=== PATIENT | male | born 1965 | race Caucasian/White ===

== ENCOUNTER 2017-04-15 23:26 | Emergency (ER) | payer BC, OTHER ==
[2017-04-16 00:08] VITALS: BP 151/89; PULSE 74; TEMP 98.6; BMI 26.9
--- NOTE | 2017-04-16 00:20 | PDOC ---
History of Present Illness - General History Source: Patient Exam Limitations: No Limitations - History of Present Illness Initial Comments: 04/16/17 00:39 The patient is a 52 year old male, with a significant past medical history of anxiety and multiple MIs, who presents to the emergency department with a toothache that began yesterday evening. The patient reports he was at work when he developed a sharp pain in his right lower teeth. Patient reports associated diaphoresis, denies any associated chest pain or palpitations. Patient also reports fast, shallow breaths at the time of the pain. He reports applying ice, Orajel, drinking cold water, and taking ibuprofen with relief of the pain. He denies any fever, chills, sore throat, ear pain, headache, or dizziness. Patient denies any recent trauma to the tooth. Patient reports he is on Plavix. Allergies: NKDA Past Surgical History: CABG, multiples stents, Pacemaker Social History: Vaping. No ETOH or recreational drug use. <Tony Davila - Last Filed: 04/16/17 00:50> <Raza Grover - Last Filed: 04/16/17 01:00> - General Chief Complaint: Toothache Stated Complaint: PAIN, ACUTE Time Seen by Provider: 04/15/17 23:55 Past History <Tnoy Davila - Last Filed: 04/16/17 00:50> - Suicide/Smoking/Psychosocial Hx Smoking History: Never smoked Have you smoked in the past 12 months: No Information on smoking cessation initiated: No Hx Alcohol Use: No Drug/Substance Use Hx: No <Raza Grover - Last Filed: 04/16/17 01:00> - Past Medical History Allergies/Adverse Reactions: Allergies Allergy/AdvReac Type Severity Reaction Status Date / Time No Known Allergies Allergy Verified 04/16/17 00:32 Home Medications: Ambulatory Orders Amoxicillin - [Amoxicillin 500mg Capsule -] 500 mg PO TID #21 capsule 04/16/17 Review of Systems - Review of Systems Able to Perform ROS?: Yes Comments:: 04/16/17 00:39 CONSTITUTIONAL: Yes: diaphoresis. No fever, no chills, no fatigue EYES: No visual changes ENT: Yes right lower tooth ache. No ear pain, no sore throat CARDIOVASCULAR: No chest pain, no palpitations RESPIRATORY: Yes: shortness of breath, rapid/shallow breathing. No cough GI: No abdominal pain, no nausea, no vomiting, no constipation, no diarrhea GENITOURINARY: No dysuria, no frequency, no hematuria MUSCULOSKELETAL: No back pain, no joint pain, no myalgias SKIN: No rash NEURO: No headache <Tony Davila - Last Filed: 04/16/17 00:50> *Physical Exam - Vital Signs Last Vital Signs Temp Pulse Resp BP Pulse Ox 98.6 F 74 14 151/89 97 04/16/17 00:07 04/16/17 00:07 04/16/17 00:07 04/16/17 00:07 04/16/17 00:07 - Physical Exam Comments: 04/16/17 00:39 CONSTITUTIONAL: Well-appearing; well-nourished; in no apparent distress HEAD: Normocephalic; atraumatic EYES: PERRL; EOM intact ENMT: External appears normal; normal oropharynx TEETH: Fracture to tooth #30, with exposed pulp. No gingival induration or flatulence NECK: Supple; non-tender; no cervical lymphadenopathy; no regional lymphadenopathy CARD: Normal S1, S2; no murmurs, rubs, or gallops RESP: Normal chest excursion with respiration; breath sounds clear and equal bilaterally; no wheezes, rhonchi, or rales ABD: Soft, non-distended; non-tender; no palpable organomegaly, no palpable hernias EXT: Normal ROM in all four extremities; non-tender to palpation; distal pulses intact SKIN: Warm, dry, no rash NEURO: No focal neurological deficiencies. <Tony Davila - Last Filed: 04/16/17 00:50> - Vital Signs Last Vital Signs Temp Pulse Resp BP Pulse Ox 98.6 F 74 14 151/89 97 04/16/17 00:07 04/16/17 00:07 04/16/17 00:07 04/16/17 00:07 04/16/17 00:07 <Raza Grover - Last Filed: 04/16/17 01:00> Heart Score/ECG Review - ECG Intrepretation Comment:: 04/16/17 00:44 Vent Rate: 72 bpm IMPRESSION: Normal sinus rhythm. Left anterior fasicular block. Septal infarct. Unchanged from ECG on 05/10/2011. <Tony Davila - Last Filed: 04/16/17 00:50> Medical Decision Making - Medical Decision Making 04/16/17 00:56 Patient was toothache likely caused by fractured tooth without evidence of underlying gingival abscess. EKG is unchanged and I do not suspect ACS at this time. Will discharge with clindamycin, NSAIDs for pain and outpatient dental follow-up promptly. <Raza Grover - Last Filed: 04/16/17 01:00> *DC/Admit/Observation/Transfer - Attestations Scribe Attestion: 04/16/17 00:39 Documentation prepared by Tony Davila, acting as medical assistant prn for Raza Grover MD. <Tony Davila - Last Filed: 04/16/17 00:50> - Attestations Physician Attestion: 04/16/17 00:55 The documentation was prepared by the scribe under my direct supervision. I have reviewed the documentation which correctly represents the findings, medical decision-making and critical action taken by me. <Raza Grover - Last Filed: 04/16/17 01:00> Diagnosis at time of Disposition: Toothache - Discharge Dispostion Disposition: HOME Condition at time of disposition: Stable - Referrals Referrals: dentist, two days [Other] - Patient Instructions Printed Discharge Instructions: DI for Dental Pain
[2017-04-16] MEDS ORDERED: CLINDAMYCIN HCL 300 MG CAPSULE PO ONE (00:30)
[2017-04-16] MEDS ORDERED: CLINDAMYCIN HCL 150 MG CAPSULE (FP) ONE (00:33)
--- NOTE | 2017-04-16 15:55 | EKG ---
Test Reason : Blood Pressure : / mmHG Vent. Rate : 072 BPM Atrial Rate : 072 BPM P-R Int : 194 ms QRS Dur : 110 ms QT Int : 424 ms P-R-T Axes : 042 -68 267 degrees QTc Int : 464 ms NORMAL SINUS RHYTHM LEFT ANTERIOR FASCICULAR BLOCK BORDERLINE CRITERIA FOR FOR IVCD SEPTAL INFARCT (CITED ON OR BEFORE 11-MAR-2007) ABNORMAL ECG WHEN COMPARED WITH ECG OF 10-MAY-2011 22:41, T WAVES ARE UPRIGHT IN V4-V5 REPEAT INDICATED Confirmed by MIKEY BARON MD ([id number]) on 04/16/2017 3:55:28 PM Referred By: Confirmed By:MIKEY BARON MD
== END 2017-04-16 01:09 | disposition home or self-care (01) ==
LOC: JER 23:26
DX: K08.89 Other specified disorders of teeth and supporting structures (principal); Z95.5 Presence of coronary angioplasty implant and graft; I25.2 Old myocardial infarction; F41.9 Anxiety disorder, unspecified
CPT/HCPCS: 93005; 93010; 99281-25

== ENCOUNTER 2017-11-16 15:55 | Inpatient (IN) | payer BC, OTHER ==
--- NOTE | 2017-11-16 16:50 | PDOC ---
History of Present Illness - General Chief Complaint: Edema Stated Complaint: COLD Time Seen by Provider: 11/16/17 16:22 History Source: Patient Exam Limitations: No Limitations - History of Present Illness Initial Comments: 11/16/17 16:42 The patient is a 52M with a PMH of CHF, multiple NM's, and anxiety, who presents to the ER with complaints of worsening cough and leg swelling. The patient states that he has had a cough x 1-2 months with increased leg swelling x 2 weeks. The patient states that his cough has worsened to the point where it was not bearable. He denies any fever, chills, nausea, vomiting, CP but admits to orthopnea and mild SOB. He denies numbness, tingling, weakness, and dysuria. Past History - Past Medical History Allergies/Adverse Reactions: Allergies Allergy/AdvReac Type Severity Reaction Status Date / Time No Known Allergies Allergy Verified 11/16/17 16:37 Home Medications: Ambulatory Orders Clopidogrel Bisulfate [Plavix -] 75 mg PO DAILY 05/17/17 Aspirin [Ecotrin] 162 mg PO DAILY 11/16/17 Carvedilol [Coreg -] 12.5 mg PO BID 11/16/17 Furosemide [Lasix] 40 mg PO DAILY 11/16/17 Insulin Lispro [Humalog] 0 unit SQ ASDIR 11/16/17 Cardiac Disorders: Yes (NM) COPD: No Diabetes: Yes - Surgical History Cardiac Surgery: Yes (STENTS, DEFIBRILLATOR, bypass) - Suicide/Smoking/Psychosocial Hx Smoking History: Current every day smoker Have you smoked in the past 12 months: No Number of Cigarettes Smoked Daily: 3 Information on smoking cessation initiated: No Hx Alcohol Use: No Drug/Substance Use Hx: No Substance Use Type: None Review of Systems - Review of Systems Able to Perform ROS?: Yes Comments:: 11/16/17 16:51 GENERAL/CONSTITUTIONAL: No fever or chills. No weakness. HEAD, EYES, EARS, NOSE AND THROAT: No change in vision. No ear pain or discharge. No sore throat. CARDIOVASCULAR: No chest pain, palpitations, or lightheadedness. RESPIRATORY: Positive for cough and SOB. No wheezing or hemoptysis. GASTROINTESTINAL: No nausea, vomiting, diarrhea, constipation, or abdominal pain. GENITOURINARY: No dysuria, frequency, hematuria, or change in urination. MUSCULOSKELETAL: No joint or muscle swelling or pain. No neck or back pain. SKIN: Positive for b/l LE edema. NEUROLOGIC: No headache, numbness, tingling, weakness, loss of consciousness, or change in strength/sensation. ENDOCRINE: No increased thirst. No abnormal weight change. HEMATOLOGIC/LYMPHATIC: No anemia, easy bleeding, or history of blood clots. ALLERGIC/IMMUNOLOGIC: No hives or skin allergy. Is the patient limited Citizen Of [place] proficient: No *Physical Exam - Vital Signs Last Vital Signs Temp Pulse Resp BP Pulse Ox 91 H 16 130/94 100 11/16/17 16:00 11/16/17 16:00 11/16/17 16:00 11/16/17 16:00 - Physical Exam Comments: 11/16/17 16:53 GENERAL: Well developed, well nourished. Awake and alert. No acute distress. HEENT: Normocephalic, atraumatic. Hearing grossly normal. Moist mucous membranes. PERRLA, EOMI. No conjunctival pallor. Sclera are non-icteric. NECK: Supple. Full ROM. No JVD. CARDIOVASCULAR: Regular rate and rhythm. No murmurs, rubs, or gallops. PULMONARY: No evidence of respiratory distress. Fine crackles noted on RLL. ABDOMINAL: Soft. Non-tender. Non-distended. No rebound or guarding. No organomegaly. Normoactive bowel sounds. GENITOURINARY: No CVA tenderness bilaterally. MUSCULOSKELETAL: Normal range of motion at all joints. No bony deformities or tenderness. EXTREMITIES: No cyanosis. No clubbing. 3-4+ pitting edema in b/l LE up to knee. No calf tenderness. SKIN: Warm and dry. Normal capillary refill. No rashes. No jaundice. NEUROLOGICAL: Alert, awake, appropriate. Cranial nerves 2-12 intact. Normal speech. Gait is normal without ataxia. PSYCHIATRIC: Cooperative. Good eye contact. Appropriate mood and affect. ED Treatment Course - LABORATORY CBC & Chemistry Diagram: 11/16/17 16:47 11/16/17 18:00 - RADIOLOGY Radiology Studies Ordered: Category Date Time Status CHEST PA & LAT [RAD] Stat Radiology 11/16/17 16:37 Ordered Medical Decision Making - Medical Decision Making 11/16/17 16:54 The patient is a 52M with a PMH of CHF who presents to the ER with worsening swelling and cough. With the patient's clinical presentation, I am worried about a CHF exacerbation. Will r/o ACS with EKG and trop. Pending labs and imaging. 11/16/17 18:41 BNP elevated to 4844 with trop elevation of 0.08. Will page hospitalist for admission to [facility] bed. 11/16/17 18:53 I have endorsed the patient to Dr. Swartz for admission under Dr. Jc. Will give 40 IV lasix. *DC/Admit/Observation/Transfer Diagnosis at time of Disposition: CHF (congestive heart failure) Qualifiers: Heart failure type: unspecified Heart failure chronicity: acute on chronic Qualified Code(s): I50.9 - Heart failure, unspecified - Discharge Dispostion Condition at time of disposition: Stable Decision to Admit order: Yes - Referrals - Patient Instructions - Post Discharge Activity
[2017-11-16 17:00] LABS: HEMATOCRIT 40.7 % (35.4-49); HEMOGLOBIN 13.6 GM/dL (11.7-16.9); LYMPH % 16.7 % (8-40); MCH 30.7 pg (25.7-33.7); MCHC 33.4 g/dl (32.0-35.9); MEAN CELL VOLUME 91.8 fl (80-96); MEAN PLT VOLUME 9.7 fl (7.5-11.1); MONO % 6.6 % (3.8-10.2); NEUT % 74.7 % (42.8-82.8); PLATELET COUNT 234 K/MM3 (134-434); RBC 4.43 M/mm3 (4.00-5.60); RDW 16.1 % (11.9-15.9); WHITE BLOOD COUNT 9.4 K/mm3 (4.0-10.0)
[2017-11-16] MEDS ORDERED: LORazepam 1 MG TABLET PO ONE (17:04)
[2017-11-16] MEDS ORDERED: LORazepam 0.5 MG TABLET ONE (17:23)
[2017-11-16 18:28] LABS: ALBUMIN 3.1 g/dl (3.4-5.0); ANION GAP 8 (8-16); BLOOD UREA NITROGEN 24 mg/dL (7-18); CALCIUM 8.4 mg/dL (8.5-10.1); CHLORIDE 110 mmol/L (98-107); CO2 21 mmol/L (21-32); CREATININE 1.1 mg/dL (0.7-1.3); GLUCOSE,RANDOM 236 mg/dL (74-106); POTASSIUM 4.6 mmol/L (3.5-5.1); SGOT/AST 69 U/L (15-37); SGPT/ALT 124 U/L (12-78); SODIUM 139 mmol/L (136-145)
--- NOTE | 2017-11-16 18:31 | PDOC ---
Attending Attestation - Resident Resident Name: KeithkarlaIsmael - ED Attending Attestation I have performed the following: I have examined & evaluated the patient, The case was reviewed & discussed with the resident, I agree w/resident's findings & plan, Exceptions are as noted - HPI HPI: 11/16/17 18:27 52-year-old male with past medical history of coronary disease, congestive heart failure presents with difficulty breathing. Ever since the patient had lost his insurance, the patient has not been followed by physician. The patient has been having this shortness of breath and persistent coughing. Has noticed the last several days is been having increasing orthopnea and lower extremity edema. Patient used to take Lasix but given insurance issues, has not taken any. Denies chest pain. - Physicial Exam PE: 11/16/17 18:29 GENERAL: Awake, alert, and fully oriented, in no acute distress. Mildly tachypneic. HEAD: No signs of trauma EYES: PERRLA, EOMI, sclera anicteric, conjunctiva clear ENT: Auricles normal inspection, hearing grossly normal, nares patent NECK: Normal ROM, supple, LUNGS: Bilateral bibasilar rales. HEART: Regular rate and rhythm, normal S1 and S2, no murmurs, rubs or gallops ABDOMEN: Soft, nontender, normoactive bowel sounds. No guarding, no rebound. No masses EXTREMITIES: Increased lower extremity edema 2+ bilaterally. NEUROLOGICAL: Cranial nerves II through XII grossly intact. N SKIN: Warm, Dry, normal turgor, no rashes or lesions noted. - Medical Decision Making 11/16/17 18:31 Vital Signs Temp Pulse Resp BP Pulse Ox 91 H 16 130/94 100 11/16/17 16:00 11/16/17 16:00 11/16/17 16:00 11/16/17 16:00 Pt likely with CHF. Labs, IV diurectics. R/o [place]. Obtain troponins. Admit Heart Score/ECG Review #1 ECG reviewed & interpreted by me at: 16:45 11/16/17 18:32 NSR 92, LAFB, no std/janak, T flat III, avF, QTC 497 msec
[2017-11-16 18:33] LABS: ALK PHOS 155 U/L (45-117); BILIRUBIN,TOTAL 0.7 mg/dL (0.2-1.0); N-TERMINAL BNP 4844.31 pg/ml (5-125); TOT PROT 6.2 g/dl (6.4-8.2)
[2017-11-16] MEDS ORDERED: FUROSEMIDE 40 MG/4 ML INJECTABLE VIAL IVPUSH ONE (18:52)
--- NOTE | 2017-11-16 19:03 | HP ---
CHIEF COMPLAINT: SOB, LE swelling PCP: none HISTORY OF PRESENT ILLNESS: 52 yr old man with DM, HTN, CHF, ICD placement, off meds and lost to f.u for last 1.5 yrs presents with orthopnea, progressively worsening b/l lower extremity edema, and worsening extertional dyspnea for past month. For past few days he has been having trouble sleeping at night due to anxiety and trouble laying flat, feels like he can't catch his breath. Also notes a decrease in exercise tolerance, unable to climb uphill and gets sob <1 city block. a/w acid reflux when he tried to lay down and nonproductive cough. denies chest pain. Tried to see Dr. Brian earlier this morning but he wasn't able to. He has not taken his cardiac medications in about 1 year. Says he takes his humalog on a sliding scale: BGM <100 - no insulin, 100-200 uses 4 units, and titrates up. His lasix pill had so he stopped taking it, says he takes his plavix and was started on it by his drum barker operator (Dr. Potts, [facility] doctor 's group, ICD placed by German Guerrero from the same group) ER course was notable for: (1) EKG (2) lasix 40 ivpush (3) cxy Recent Travel: none PAST MEDICAL HISTORY: 2 MIs in s, multiple stents(unknown when), ICD, CHF, uncontrolled DM(last A1c in 2011 was 14) PAST SURGICAL HISTORY: CABG Social History: Smoking: started smoking age 12, smokes 1-3 cigs or more 1-2xweek, current smoker Alcohol: denies Drugs: denies Family History: uncle(father's brother) at age 45 from OR, says "multiple family members have from early OR's" grandmother(maternal) age 75 from breast ca, brother with schizophrenia, Allergies No Known Allergies Allergy (Verified 11/16/17 16:37) HOME MEDICATIONS: Home Medications Medication Instructions Recorded Clopidogrel Bisulfate [Plavix -] 75 mg PO DAILY 05/17/17 Aspirin [Ecotrin] 162 mg PO DAILY 11/16/17 Carvedilol [Coreg -] 12.5 mg PO BID 11/16/17 Furosemide [Lasix] 40 mg PO DAILY 11/16/17 Insulin Lispro [Humalog] 0 unit SQ ASDIR 11/16/17 REVIEW OF SYSTEMS CONSTITUTIONAL: Absent: fever, chills, diaphoresis, generalized weakness, malaise, loss of appetite, weight change HEENT: Absent: rhinorrhea, nasal congestion, throat pain, throat swelling, difficulty swallowing, mouth swelling, visual changes CARDIOVASCULAR: Present:peripheral edema Absent: chest pain, syncope, palpitations, irregular heart rate, lightheadedness , RESPIRATORY: Present:cough, shortness of breath, dyspnea with exertion, orthopnea, Absent: wheezing, stridor, hemoptysis GASTROINTESTINAL: Present:abdominal distension Absent: abdominal pain, , nausea, vomiting, diarrhea, constipation, melena, hematochezia GENITOURINARY: Absent: dysuria, frequency, urgency, hesitancy, hematuria, flank pain MUSCULOSKELETAL: Absent: myalgia, arthralgia, joint swelling, back pain, neck pain SKIN: Absent: rash, itching, pallor HEMATOLOGIC/IMMUNOLOGIC: Absent: easy bleeding, easy bruising, lymphadenopathy, frequent infections ENDOCRINE: Absent: unexplained weight gain, unexplained weight loss, heat intolerance, cold intolerance NEUROLOGIC: Absent: headache, focal weakness or paresthesias, dizziness, unsteady gait, seizure, mental status changes, bladder or bowel incontinence PSYCHIATRIC: Present:anxiety, Absent: depression, suicidal or homicidal ideation, hallucinations. PHYSICAL EXAMINATION Vital Signs - 24 hr 11/16/17 16:00 Pulse Rate 91 H Respiratory 16 Rate Blood Pressure 130/94 O2 Sat by Pulse 100 Oximetry (%) GENERAL: Awake, alert, and fully oriented, in no acute distress. HEAD: Normal with no signs of trauma. EYES: Pupils equal, round and reactive to light, extraocular movements intact, sclera anicteric, conjunctiva clear. No lid lag. EARS, NOSE, THROAT: Ears normal, nares patent, oropharynx clear without exudates. Moist mucous membranes. NECK: Normal range of motion, supple without lymphadenopathy,or masses. no thyromegaly, +JVD LUNGS: initial exam p had rhonchi with basilar crackles throughout right lung, after pt coughed lungs became CTAB HEART: Regular rate and rhythm, normal S1 and S2 without murmur, rub or gallop. ABDOMEN: Soft, nontender, +distended, normoactive bowel sounds, no guarding, no rebound, no masses. petechia in rlq from insulin injections MUSCULOSKELETAL: Normal range of motion at all joints. No bony deformities or tenderness. No CVA tenderness. UPPER EXTREMITIES: 2+ radial pulses, warm, well-perfused. No cyanosis. No clubbing. No peripheral edema. LOWER EXTREMITIES: 2+ dp pulses, warm, well-perfused. No calf tenderness. 3+ b/ l edema from feet to knees, few punctate weeping ulcers without signs of infections. well healed upper knee/thigh scar on left leg, scar with some surrounding redness from lower medial leg to ankle. NEUROLOGICAL: Cranial nerves II-XII intact. Normal speech. Normal gait. 5/5 flexion and extension in all upper and lower muscle groups. PSYCHIATRIC: Cooperative. Good eye contact. Appropriate mood and affect. SKIN: Warm, dry, normal turgor, no rashes or lesions noted, normal capillary refill. Laboratory Results - last 24 hr 11/16/17 11/16/17 11/16/17 16:47 16:47 18:00 WBC 9.4 RBC 4.43 Hgb 13.6 Hct 40.7 MCV 91.8 MCH 30.7 MCHC 33.4 RDW 16.1 H Plt Count 234 MPV 9.7 Neutrophils % 74.7 Lymphocytes % 16.7 Monocytes % 6.6 Eosinophils % 1.0 Basophils % 1.0 Sodium Cancelled 139 Potassium Cancelled 4.6 Chloride Cancelled 110 H Carbon Dioxide Cancelled 21 Anion Gap Cancelled 8 BUN Cancelled 24 H Creatinine Cancelled 1.1 Creat Clearance w eGFR Cancelled > 60 Random Glucose Cancelled 236 H Calcium Cancelled 8.4 L Total Bilirubin Cancelled 0.7 AST Cancelled 69 H ALT Cancelled 124 H Alkaline Phosphatase Cancelled 155 H Creatine Kinase Cancelled 382 H Troponin I Cancelled 0.08 H B-Natriuretic Peptide Cancelled 4844.31 H Total Protein Cancelled 6.2 L Albumin Cancelled 3.1 L ASSESSMENT/PLAN: 52 yr old man with CHF, HTN, DM presents with SOB and LE edema admitted to [facility] for CHF exacerbation. #Acute on chronic CHF exacerbation likely cause of SOB and LE edema - lasix 40mg IVPUSH BID for diuresis - daily weights, I&O's, fluid restrict 10 1L/day, - continuous cardiac monitoring, O2 prn - echo to eval cardiac function - cardiology consult Dr. Miranda - device interrogation of the ICD, copy of his device card is in the chart, [employer], when he is transferred to 4w - lipid profile in the AM, will likely need statin - try to obtain records if possible from drum barker operator's office - call pharmacy to verify his past regimen - start beta-lenny, as per chart; was on coreg 12.5mg bid, start with daily - trend trops, low suspicion for ACS, no EKG changes to indicate acute ischemia , denies chest pain. repeat EKG #Transaminitis - likely related to decreased cardiac function - ultrasound - r/o hepatitis - trend LFT's # Uncontrolled DM - BGM and NISS ACHS - A1c pending #HTN - start an ACEi, lisinopril 5mg po - coreg 12.5mg daily #CAD - continue ASA 81mg daily - continue Plavix 1 t daily - if possible reach Dr. Brian for pmhx #smoking cessation, counseling offered, pt declined patch, understands he cannot leave the hospital to smoke #HIV testing offered, pt declined #Code status: verbally designated his childhood friend Dayton Tobias [phone] as healthcare proxy. #night time anxiety could be ANKIT, would likely benefit from outpatient sleep study #DVT: lovenox, ambulation #diet: na/diabetic diet Visit type - Emergency Visit Emergency Visit: Yes ED Registration Date: 11/16/17 Care time: The patient presented to the Emergency Department on the above date and was hospitalized for further evaluation of their emergent condition. - New Patient This patient is new to me today: Yes Date on this admission: 11/16/17 - Critical Care Critical Care patient: No Hospitalist Screening - Colonoscopy Questionnaire Colonoscopy Questionnaire: Colonoscopy Questionnaire - Patient: 50 - 75 years old and never had a screening colonoscopy: Unknown History of colon or rectal polyps, or CA: Unknown History of IBD, Crohn's disease or UC: Unknown History of abdominal radiation therapy as a child: Unknown - Relative: 1 with colon or rectal CA, or polyps at age 60 or younger: Unknown Colon or rectal CA diagnosed at age 45 or younger: Unknown Multiple relatives with colon or rectal CA: Unknown - Outcome: Screening Result: Negative Screen
[2017-11-16] MEDS ORDERED: FUROSEMIDE 40 MG/4 ML INJECTABLE VIAL ONE (19:23)
--- NOTE | 2017-11-16 22:11 | PN ---
Teaching Attending Note Name of Resident: Goyo Mcintosh ATTENDING PHYSICIAN STATEMENT I saw and evaluated the patient. Chart, data, imaging reviewed. I reviewed the resident's note and discussed the case with the resident. I agree with the resident's findings and plan as documented. SUBJECTIVE: 52M with a PMH of CHF unknown EF, PVD, s/p AICD placement, CAD s/p stent placement?, anxiety, uncontrolled DM, c/o b/l lower ext swelling and shortness of breath worsening for the last 2 weeks. Patient has not seen his program and research coordinator in a long time. He reports also decreased exercise tolerance, need to sleep on multiple pillows. Denied any fevers, productive cough, or chills. OBJECTIVE: Last Vital Signs Temp Pulse Resp BP Pulse Ox 91 H 16 130/94 100 11/16/17 16:00 11/16/17 16:00 11/16/17 16:00 11/16/17 16:00 general -nad, aaox3, speaks in full sentences heent -atraumatic, normocephalic neck- mild jvd b/l cv-s1+s2+ rrr chest- cta b/l abdomen- obese, soft, nontender, bs+ ext-3+ pitting edema up to knees b/l, left leg scars s/p revascularization Abnormal Lab Results 11/16/17 11/16/17 16:47 18:00 RDW 16.1 H Chloride 110 H BUN 24 H Random Glucose 236 H Calcium 8.4 L AST 69 H ALT 124 H Alkaline Phosphatase 155 H Creatine Kinase 382 H CK-MB (CK-2) 6.291 H Troponin I 0.08 H B-Natriuretic Peptide 4844.31 H Total Protein 6.2 L Albumin 3.1 L CXR reviewed by me- left chest AICD with lead extending to ventricle, clear costophrenic angles, increased pulm vascular markings b/l ekg - negative for any acute ischemic changes, nsr ASSESSMENT AND PLAN: 52yo man with decompensated chf, Aicd in place. High bnp, pedal edema. Troponin lead likely secondary to DCHF. Doubt active ACS. Noncompliant with medications and followup. Transaminitis likely secondary to hepatic congestion from chf. Unclear history of stents. -admit to telemetry -transthoracic echo -trend troponins -furosemide 40mg IV q12hrs -ASA -plavix -statin -bblocker -ACEi -i/o, daily weights -2g Na diet -1 liter daily fluid restriction -cardiology evaluation -interogation of AICD -call pharmacy in am to reconcile medications -obtain medical records from program and research coordinator -repeat ekg -liver U/S -hepatitis panel -heparin sc for dvt prophylaxis -see resident note for details
[2017-11-16] MEDS ORDERED: INSULIN (NOVOLOG) ASPART 100 UNITS/ML 10ML VIAL ONE (22:12)
[2017-11-16] MEDS: INSULIN SLIDING SCALE (NOVOLOG) 1 VIAL SQ SCH (22:22)
[2017-11-17] MEDS: FUROSEMIDE 40 MG/4 ML INJECTABLE VIAL IVPUSH SCH ×2 (05:37→13:49)
[2017-11-17] MEDS: INSULIN SLIDING SCALE (NOVOLOG) 1 VIAL SQ SCH ×4 (06:05→21:44)
[2017-11-17 07:25] VITALS: BMI 28.6
[2017-11-17 07:28] LABS: BASO % 0.6 % (0-2.0); EOS % 1.5 % (0-4.5); HEMATOCRIT 43.3 % (35.4-49); HEMOGLOBIN 14.3 GM/dL (11.7-16.9); LYMPH % 15.6 % (8-40); MCH 30.4 pg (25.7-33.7); MEAN CELL VOLUME 92.1 fl (80-96); MEAN PLT VOLUME 9.2 fl (7.5-11.1); MONO % 5.7 % (3.8-10.2); NEUT % 76.6 % (42.8-82.8); PLATELET COUNT 239 K/MM3 (134-434); RDW 15.9 % (11.9-15.9); WHITE BLOOD COUNT 10.3 K/mm3 (4.0-10.0)
[2017-11-17 07:50] LABS: ALBUMIN 3.2 g/dl (3.4-5.0); ANION GAP 9 (8-16); BLOOD UREA NITROGEN 26 mg/dL (7-18); CALCIUM 8.5 mg/dL (8.5-10.1); CHLORIDE 106 mmol/L (98-107); CHOLESTEROL 132 mg/dL (50-200); CO2 25 mmol/L (21-32); CREATININE 1.2 mg/dL (0.7-1.3); GLUCOSE,RANDOM 126 mg/dL (74-106); MAGNESIUM 2.1 mg/dL (1.8-2.4); PHOSPHOROUS 4.4 mg/dL (2.5-4.9); SGOT/AST 64 U/L (15-37); SODIUM 140 mmol/L (136-145); TOT PROT 6.3 g/dl (6.4-8.2); TRIGLYCERIDES 83 mg/dL (35-160)
[2017-11-17 07:52] LABS: ALK PHOS 154 U/L (45-117); BILIRUBIN,TOTAL 0.9 mg/dL (0.2-1.0); HDL CHOLESTEROL 30 mg/dL (40-60); SGPT/ALT 119 U/L (12-78)
--- NOTE | 2017-11-17 09:22 | PN ---
Teaching Attending Note Name of Resident: Horacio Stanley ATTENDING PHYSICIAN STATEMENT I saw and evaluated the patient. I reviewed the resident's note and discussed the case with the resident. I agree with the resident's findings and plan as documented with exceptions below. SUBJECTIVE: Patient seen and examined. Urinating more, breathing and swelling improved, OBJECTIVE: Vital Signs Period Temp Pulse Resp BP Sys/Vega Pulse Ox Last 24 Hr 97.9 F-98.1 F 85-94 16-20 130-151/71-94 97-100 Intake & Output 11/14/17 11/15/17 11/16/17 11/17/17 23:59 23:59 23:59 23:59 Intake Total 25 Output Total 1175 Balance -1150 Weight 175 lb 183 lb 2 oz General: sitting at edge of bed in no acute distress Chest: bibasilar rales, good air entry bilaterally Abdomen:soft, distended, NT throughout, neg Lopes's sign Extremities: 2+ pedal pitting edema Neck: neck vein distension, unable to examine Heptojugular reflux as patient kept coughing through the exam Home Medication List Medication Instructions Recorded Confirmed Type Clopidogrel Bisulfate [Plavix -] 75 mg PO DAILY 05/17/17 11/16/17 History Aspirin [Ecotrin] 162 mg PO DAILY 11/16/17 11/16/17 History Carvedilol [Coreg -] 12.5 mg PO BID 11/16/17 11/16/17 History Furosemide [Lasix] 40 mg PO DAILY 11/16/17 11/16/17 History Insulin Lispro [Humalog] 0 unit SQ ASDIR 11/16/17 11/16/17 History Active Medications Generic Name Dose Route Start Last Admin Trade Name Freq PRN Reason Stop Dose Admin Aspirin 81 mg 11/17/17 10:00 Ecotrin - PO DAILY ANGELO Benzocaine/Menthol 1 each 11/17/17 01:39 Cepacol Lozenge - MM PRN PRN SORE THROAT Carvedilol 12.5 mg 11/17/17 10:00 Coreg - PO BID ANGELO Clopidogrel Bisulfate 75 mg 11/17/17 10:00 Plavix - PO DAILY ANGELO Enoxaparin Sodium 40 mg 11/17/17 10:00 Lovenox - SQ DAILY ANGELO Furosemide 40 mg 11/17/17 06:00 11/17/17 05:37 Lasix Injection - IVPUSH 40 mg BID@0600,1400 [facility] Administration Insulin Aspart 1 vial 11/16/17 22:00 11/17/17 06:05 Novolog Vial Sliding Scale - SQ Not Given ACHS [facility] Protocol Lisinopril 5 mg 11/17/17 10:00 Prinivil PO DAILY ANGELO Sodium Chloride 2 spray 11/17/17 01:39 [place] Welcome Nasal Welcome - NS BID PRN NASAL CONGESTION Laboratory Results - last 24 hr 11/16/17 11/16/17 11/16/17 16:47 16:47 18:00 WBC 9.4 RBC 4.43 Hgb 13.6 Hct 40.7 MCV 91.8 MCH 30.7 MCHC 33.4 RDW 16.1 H Plt Count 234 MPV 9.7 Neutrophils % 74.7 Lymphocytes % 16.7 Monocytes % 6.6 Eosinophils % 1.0 Basophils % 1.0 Sodium Cancelled 139 Potassium Cancelled 4.6 Chloride Cancelled 110 H Carbon Dioxide Cancelled 21 Anion Gap Cancelled 8 BUN Cancelled 24 H Creatinine Cancelled 1.1 Creat Clearance w eGFR Cancelled > 60 POC Glucometer Random Glucose Cancelled 236 H Hemoglobin A1c % Calcium Cancelled 8.4 L Phosphorus Magnesium Total Bilirubin Cancelled 0.7 AST Cancelled 69 H ALT Cancelled 124 H Alkaline Phosphatase Cancelled 155 H Creatine Kinase Cancelled 382 H Creatine Kinase Index 1.6 CK-MB (CK-2) 6.291 H Troponin I Cancelled 0.08 H B-Natriuretic Peptide Cancelled 4844.31 H Total Protein Cancelled 6.2 L Albumin Cancelled 3.1 L Triglycerides Cholesterol Total LDL Cholesterol HDL Cholesterol 11/16/17 11/16/17 11/17/17 21:49 22:07 00:39 WBC RBC Hgb Hct MCV MCH MCHC RDW Plt Count MPV Neutrophils % Lymphocytes % Monocytes % Eosinophils % Basophils % Sodium Potassium Chloride Carbon Dioxide Anion Gap BUN Creatinine Creat Clearance w eGFR POC Glucometer [phone] Random Glucose Hemoglobin A1c % 8.7 H Calcium Phosphorus Magnesium Total Bilirubin AST ALT Alkaline Phosphatase Creatine Kinase 337 H Creatine Kinase Index 1.6 CK-MB (CK-2) 5.576 H Troponin I 0.09 H B-Natriuretic Peptide Total Protein Albumin Triglycerides Cholesterol Total LDL Cholesterol HDL Cholesterol 11/17/17 11/17/17 11/17/17 05:41 06:45 06:45 WBC 10.3 H RBC 4.70 Hgb 14.3 Hct 43.3 MCV 92.1 MCH 30.4 MCHC 33.0 RDW 15.9 Plt Count 239 MPV 9.2 Neutrophils % 76.6 Lymphocytes % 15.6 Monocytes % 5.7 Eosinophils % 1.5 Basophils % 0.6 Sodium 140 Potassium 4.0 Chloride 106 Carbon Dioxide 25 Anion Gap 9 BUN 26 H Creatinine 1.2 Creat Clearance w eGFR > 60 POC Glucometer 111 Random Glucose 126 H D Hemoglobin A1c % Calcium 8.5 Phosphorus 4.4 Magnesium 2.1 Total Bilirubin 0.9 D AST 64 H ALT 119 H Alkaline Phosphatase 154 H Creatine Kinase Creatine Kinase Index CK-MB (CK-2) Troponin I B-Natriuretic Peptide Total Protein 6.3 L Albumin 3.2 L Triglycerides 83 Cholesterol 132 Total LDL Cholesterol 100 HDL Cholesterol 30 L 11/17/17 06:45 WBC RBC Hgb Hct MCV MCH MCHC RDW Plt Count MPV Neutrophils % Lymphocytes % Monocytes % Eosinophils % Basophils % Sodium Potassium Chloride Carbon Dioxide Anion Gap BUN Creatinine Creat Clearance w eGFR POC Glucometer Random Glucose Hemoglobin A1c % Calcium Phosphorus Magnesium Total Bilirubin AST ALT Alkaline Phosphatase Creatine Kinase 316 H Creatine Kinase Index CK-MB (CK-2) Troponin I 0.08 H B-Natriuretic Peptide Total Protein Albumin Triglycerides Cholesterol Total LDL Cholesterol HDL Cholesterol ASSESSMENT AND PLAN: 52 yom with PMHx of CAd s/p 2 MIs in , multiple stents(unknown when), s/p CABG, ICD, CHF, uncontrolled DM(last A1c in 2010 was 14), off meds, lost to follow up for 1.5 years comes with progressive dyspnea, and minimal troponin elevation. -Acute CHF exacerbation, likely Systolic +/- diastolic, from med/dietary non compliance -Cardiomyopathy, ?Ischemia -Abnormal LFTs, likely passive hepatic congestion from above -Elevated Troponin, suspect demand ischemia from above rather than ACS -CAD s/p multiple PCIs and CABG -s/p ICD placement -Uncontrolled DM, non compliance -HLD Plan: Lasix 40 mg IV BID, strict I/Os, daily weights, follow up 2D echo. Cardiology consult noted. Aldactone added. ICD interrogated, NSVT but no other concerning evens. Continue ASA/plavix/Coreg/statin/ACei. Trend LFTs, RUQ US noted. Follow up hep panel. ISS, A1c 8.7, diabetic diet, Anticipate will need insulin on d/c DVTPPX with heparin Dispo pending clinical improvement. Plan discussed with patient in detail, all questions answered.
--- NOTE | 2017-11-17 09:35 | EKG ---
Test Reason : Blood Pressure : / mmHG Vent. Rate : 094 BPM Atrial Rate : 094 BPM P-R Int : 182 ms QRS Dur : 104 ms QT Int : 394 ms P-R-T Axes : 034 -77 074 degrees QTc Int : 492 ms NORMAL SINUS RHYTHM LEFT ANTERIOR FASCICULAR BLOCK LATERAL INFARCT , AGE UNDETERMINED ABNORMAL ECG Confirmed by MILANA DUNCAN MD ([id number]) on 11/17/2017 9:35:23 AM Referred By: Confirmed By:MILANA DUNCAN MD
[2017-11-17] MEDS: ENOXAPARIN NA (PORCINE) 40 MG/0.4 ML DISP.SYRIN SQ SCH (09:42)
[2017-11-17] MEDS: CLOPIDOGREL BISULFATE 75 MG TABLET (FP) PO SCH (09:43)
[2017-11-17] MEDS: LISINOPRIL 5 MG TABLET (FP) PO SCH (09:43)
[2017-11-17] MEDS: CARVEDILOL 12.5 MG TABLET (FP) PO SCH ×2 (09:43→21:44)
[2017-11-17] MEDS: ASPIRIN COATED 81 MG TABLET.EC PO SCH (09:43)
--- NOTE | 2017-11-17 09:44 | EKG ---
Test Reason : Blood Pressure : / mmHG Vent. Rate : 092 BPM Atrial Rate : 092 BPM P-R Int : 180 ms QRS Dur : 106 ms QT Int : 402 ms P-R-T Axes : 033 -78 065 degrees QTc Int : 497 ms NORMAL SINUS RHYTHM LEFT ANTERIOR FASCICULAR BLOCK LATERAL INFARCT , AGE UNDETERMINED ABNORMAL ECG Confirmed by MILANA DUNCAN MD ([id number]) on 11/17/2017 9:44:13 AM Referred By: Confirmed By:MILANA DUNCAN MD
[2017-11-17] MEDS ORDERED: CARVEDILOL 12.5 MG TABLET (FP) PO SCH ×2 (10:00)
[2017-11-17] MEDS: BENZOCAINE/MENTH/CETYLPYRD CL 1 EACH LOZENGE MM PRN (10:52)
[2017-11-17] MEDS ORDERED: INSULIN (NOVOLOG) ASPART 100 UNITS/ML 10ML VIAL ONE (11:28)
--- NOTE | 2017-11-17 11:35 | CON.CARD ---
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 For past few days he has been having trouble sleeping at night due to anxiety and trouble laying flat , feels like he can't catch his breath. Also notes a decrease in exercise tolerance, unable to climb uphill and gets sob <1 city block. He denies chest pain, near or true syncope, palpitations or ICD discharges. He has not taken his cardiac medications in about 1 year. Says he takes his humalog on a sliding scale: BGM <100 - no insulin, 100-200 uses 4 units, and titrates up. His lasix pill had so he stopped taking it, says he still takes his plavix, previously saw Drs. Potts and Edouard at [facility]. Diuresis initiated with improvement of symptoms. - History Source History Provided By: Patient Limitations to Obtaining History: No Limitations - Past Medical History Cardio/Vascular: Yes: CAD, CHF, HTN, Hyperlipdemia - Past Surgical History Past Surgical History: Yes: AICD, Bypass, Stent - Alcohol/Substance Use Hx Alcohol Use: No - Smoking History Smoking history: Current every day smoker Have you smoked in the past 12 months: No Aproximately how many cigarettes per day: 3 Home Medications - Allergies Allergies/Adverse Reactions: Allergies Allergy/AdvReac Type Severity Reaction Status Date / Time No Known Allergies Allergy Verified 11/16/17 16:37 - Home Medications Home Medications: Ambulatory Orders Clopidogrel Bisulfate [Plavix -] 75 mg PO DAILY 05/17/17 Aspirin [Ecotrin] 162 mg PO DAILY 11/16/17 Carvedilol [Coreg -] 12.5 mg PO BID 11/16/17 Furosemide [Lasix] 40 mg PO DAILY 11/16/17 Insulin Lispro [Humalog] 0 unit SQ ASDIR 11/16/17 Review of Systems - Review of Systems Cardiovascular: reports: Edema, Shortness of Breath Respiratory: reports: Orthopnea, PND, SOB on Exertion Vital Signs: Vital Signs Temperature 98.6 F 11/17/17 09:00 Pulse Rate 80 11/17/17 09:00 Respiratory Rate 20 11/17/17 09:00 Blood Pressure 120/79 11/17/17 09:00 O2 Sat by Pulse Oximetry (%) 98 11/17/17 09:00 Constitutional: Yes: No Distress, Calm, Thin Neck: Yes: Supple Respiratory: Yes: Regular, Diminished, On Nasal O2 Gastrointestinal: Yes: Normal Bowel Sounds, Soft Cardiovascular: Yes: Regular Rate and Rhythm JVD: No Carotid Bruit: No Heart Sounds: Yes: S1, S2 Murmur: Yes: Systolic Murmur, Grade 1 Edema: Yes Edema: LLE: 2+, RLE: 2+ - Other Data Labs, Other Data: CBC, BMP 11/17/17 06:45 11/17/17 06:45 Troponin, BNP 11/16/17 11/16/17 11/17/17 16:47 18:00 00:39 Troponin I Cancelled 0.08 H 0.09 H B-Natriuretic Peptide Cancelled 4844.31 H 11/17/17 06:45 Troponin I 0.08 H B-Natriuretic Peptide Troponin, BNP 11/16/17 11/16/17 11/17/17 16:47 18:00 00:39 Troponin I Cancelled 0.08 H 0.09 H B-Natriuretic Peptide Cancelled 4844.31 H 11/17/17 06:45 Troponin I 0.08 H B-Natriuretic Peptide NSR LAD Echo: Pending Ejection Fraction %: LVEF < 40 % Imaging - Results Chest X-ray: Report Reviewed (NAD) Problem List - Problems (1) Acute on chronic systolic (congestive) heart failure Code(s): I50.23 - ACUTE ON CHRONIC SYSTOLIC (CONGESTIVE) HEART FAILURE (2) Coronary artery disease Code(s): I25.10 - ATHSCL HEART DISEASE OF [place] CORONARY ARTERY W/O ANG PCTRS Qualifiers: Coronary Disease-Associated Artery/Lesion type: [place] artery [place] vs. transplanted heart: [place] heart Associated angina: without angina Qualified Code(s): I25.10 - Atherosclerotic heart disease of [place] coronary artery without angina pectoris (3) S/P coronary artery stent placement Code(s): Z95.5 - PRESENCE OF CORONARY ANGIOPLASTY IMPLANT AND GRAFT (4) S/P femoral-femoral bypass surgery Code(s): Z95.828 - PRESENCE OF OTHER VASCULAR IMPLANTS AND GRAFTS (5) Peripheral artery disease Code(s): I73.9 - PERIPHERAL VASCULAR DISEASE, UNSPECIFIED (6) Cardiomyopathy, ischemic Code(s): I25.5 - ISCHEMIC CARDIOMYOPATHY (7) Implantable cardioverter-defibrillator (ICD) in situ Code(s): Z95.810 - PRESENCE OF AUTOMATIC (IMPLANTABLE) CARDIAC DEFIBRILLATOR (8) Diabetes mellitus Code(s): E11.9 - TYPE 2 DIABETES MELLITUS WITHOUT COMPLICATIONS Qualifiers: Diabetes mellitus type: type 2 Diabetes mellitus laborer marine terminal insulin use: with laborer marine terminal use Diabetes mellitus complication status: with circulatory complication Diabetes mellitus complication detail: with peripheral angiopathy without gangrene Qualified Code(s): E11.51 - Type 2 diabetes mellitus with diabetic peripheral angiopathy without gangrene; Z79.4 - laborer marine terminal (current) use of insulin; Z79.4 - laborer marine terminal (current) use of insulin; Z79.4 - laborer marine terminal (current) use of insulin; Z79.4 - retirement (current) use of insulin (9) Hyperlipidemia associated with type 2 diabetes mellitus Code(s): E11.69 - TYPE 2 DIABETES MELLITUS WITH OTHER SPECIFIED COMPLICATION; E78.5 - HYPERLIPIDEMIA, UNSPECIFIED (10) Hypertensive cardiomyopathy Code(s): I11.9 - HYPERTENSIVE HEART DISEASE WITHOUT HEART FAILURE; I43 - CARDIOMYOPATHY IN DISEASES CLASSIFIED ELSEWHERE Qualifiers: Heart failure presence: with heart failure Qualified Code(s): I11.0 - Hypertensive heart disease with heart failure; I43 - Cardiomyopathy in diseases classified elsewhere; I43 - Cardiomyopathy in diseases classified elsewhere; I43 - Cardiomyopathy in diseases classified elsewhere; I43 - Cardiomyopathy in diseases classified elsewhere (11) Noncompliance with medications Code(s): Z91.14 - PATIENT'S OTHER NONCOMPLIANCE WITH MEDICATION REGIMEN (12) Tobacco abuse Code(s): Z72.0 - TOBACCO USE Assessment/Plan 1. Acute on chronic systolic failure referable to medication and diet indiscretion 2. CAD s/p PCI (stent) with demand ischemia 3. PAD s/p FERTILIZING MACHINE OPERATOR and bypass 4. h/o ICD implantation and generator change 5. Hepatic congestion with abnl LFTs 6. Tobacco abuse 7. Type 2 DM not at goal control Ha1c 8.7% P:1. IV diuresis with monitor diuretic response, renal fxn and electrolytes 2. F/u echo to assess ventricular and valve fxn, check TSH, trend LFTs and trops 3. Continue ASA, Plavix, carvedilol, lisinopril and add aldactone as electrolyes and hemodynamics tolerate, start statin once LFTs decline 4. Interrogate ICD ([place]) has not been performed in > 1 year 5. DVT prophylaxis, optimize glycemic control, outpatient records reviewed 6. Tobacco cessation 7. Emphasize importance of compliance with diet, medication and medical f/u 8. Thank you for consultative opportunity, f/u with Drs. Potts and Edouard of [facility] upon d/c.
[2017-11-17] MEDS: SPIRONOLACTONE 25 MG TABLET (FP) PO SCH (12:32)
[2017-11-17] MEDS ORDERED: FUROSEMIDE 40 MG/4 ML INJECTABLE VIAL IVPUSH ONE (17:00)
--- NOTE | 2017-11-17 18:17 | PN ---
Physical Exam: SUBJECTIVE: Patient seen and examined at bedside. Pt feels much better since getting lasix. Breathing is improved. Still has leg swelling. OBJECTIVE: Vital Signs Period Temp Pulse Resp BP Sys/Vega Pulse Ox Last 24 Hr 97.3 F-98.6 F 77-94 19-20 106-151/71-87 97-98 GENERAL: The patient is awake, alert, and fully oriented, in no acute distress. HEAD: Normal with no signs of trauma. EYES: sclera anicteric, conjunctiva clear. No ptosis. ENT: oropharynx clear without exudates, moist mucous membranes. NECK: Trachea midline, full range of motion, supple. LUNGS: bibasilar crackles, no accessory muscle use. HEART: Regular rate and rhythm, S1, S2 without murmur, rub or gallop. ABDOMEN: Soft, nontender, nondistended, normoactive bowel sounds, no guarding, no rebound, no hepatosplenomegaly, no masses. EXTREMITIES: 2+ pulses, warm, well-perfused, 2+ edema. NEUROLOGICAL: Cranial nerves II through XII grossly intact. Normal speech, gait not observed. PSYCH: Normal mood, normal affect. SKIN: Warm, dry, normal turgor, no rashes or lesions noted Laboratory Results - last 24 hr 11/16/17 11/16/17 11/16/17 18:00 21:49 22:07 WBC RBC Hgb Hct MCV MCH MCHC RDW Plt Count MPV Neutrophils % Lymphocytes % Monocytes % Eosinophils % Basophils % Sodium 139 Potassium 4.6 Chloride 110 H Carbon Dioxide 21 Anion Gap 8 BUN 24 H Creatinine 1.1 Creat Clearance w eGFR > 60 POC Glucometer 181.38444 Random Glucose 236 H Hemoglobin A1c % 8.7 H Calcium 8.4 L Phosphorus Magnesium Total Bilirubin 0.7 AST 69 H ALT 124 H Alkaline Phosphatase 155 H Creatine Kinase 382 H Creatine Kinase Index 1.6 CK-MB (CK-2) 6.291 H Troponin I 0.08 H B-Natriuretic Peptide 4844.31 H Total Protein 6.2 L Albumin 3.1 L Triglycerides Cholesterol Total LDL Cholesterol HDL Cholesterol 11/17/17 11/17/17 11/17/17 00:39 05:41 06:45 WBC 10.3 H RBC 4.70 Hgb 14.3 Hct 43.3 MCV 92.1 MCH 30.4 MCHC 33.0 RDW 15.9 Plt Count 239 MPV 9.2 Neutrophils % 76.6 Lymphocytes % 15.6 Monocytes % 5.7 Eosinophils % 1.5 Basophils % 0.6 Sodium Potassium Chloride Carbon Dioxide Anion Gap BUN Creatinine Creat Clearance w eGFR POC Glucometer 111 Random Glucose Hemoglobin A1c % Calcium Phosphorus Magnesium Total Bilirubin AST ALT Alkaline Phosphatase Creatine Kinase 337 H Creatine Kinase Index 1.6 CK-MB (CK-2) 5.576 H Troponin I 0.09 H B-Natriuretic Peptide Total Protein Albumin Triglycerides Cholesterol Total LDL Cholesterol HDL Cholesterol 11/17/17 11/17/17 11/17/17 06:45 06:45 11:24 WBC RBC Hgb Hct MCV MCH MCHC RDW Plt Count MPV Neutrophils % Lymphocytes % Monocytes % Eosinophils % Basophils % Sodium 140 Potassium 4.0 Chloride 106 Carbon Dioxide 25 Anion Gap 9 BUN 26 H Creatinine 1.2 Creat Clearance w eGFR > 60 POC Glucometer 187 Random Glucose 126 H D Hemoglobin A1c % Calcium 8.5 Phosphorus 4.4 Magnesium 2.1 Total Bilirubin 0.9 D AST 64 H ALT 119 H Alkaline Phosphatase 154 H Creatine Kinase 316 H Creatine Kinase Index 1.6 CK-MB (CK-2) 5.204 H Troponin I 0.08 H B-Natriuretic Peptide Total Protein 6.3 L Albumin 3.2 L Triglycerides 83 Cholesterol 132 Total LDL Cholesterol 100 HDL Cholesterol 30 L 11/17/17 16:24 WBC RBC Hgb Hct MCV MCH MCHC RDW Plt Count MPV Neutrophils % Lymphocytes % Monocytes % Eosinophils % Basophils % Sodium Potassium Chloride Carbon Dioxide Anion Gap BUN Creatinine Creat Clearance w eGFR POC Glucometer 132 Random Glucose Hemoglobin A1c % Calcium Phosphorus Magnesium Total Bilirubin AST ALT Alkaline Phosphatase Creatine Kinase Creatine Kinase Index CK-MB (CK-2) Troponin I B-Natriuretic Peptide Total Protein Albumin Triglycerides Cholesterol Total LDL Cholesterol HDL Cholesterol Active Medications Generic Name Dose Route Start Last Admin Trade Name Freq PRN Reason Stop Dose Admin Aspirin 81 mg 11/17/17 10:00 11/17/17 09:43 Ecotrin - PO 81 mg DAILY ANGELO Administration Benzocaine/Menthol 1 each 11/17/17 01:39 11/17/17 10:52 Cepacol Lozenge - MM 1 each PRN PRN Administration SORE THROAT Carvedilol 12.5 mg 11/17/17 10:00 11/17/17 09:43 Coreg - PO 12.5 mg BID ANGELO Administration Clopidogrel Bisulfate 75 mg 11/17/17 10:00 11/17/17 09:43 Plavix - PO 75 mg DAILY ANGELO Administration Enoxaparin Sodium 40 mg 11/17/17 10:00 11/17/17 09:42 Lovenox - SQ 40 mg DAILY ANGELO Administration Furosemide 40 mg 11/17/17 06:00 11/17/17 13:49 Lasix Injection - IVPUSH 40 mg BID@0600,1400 ANGELO Administration Insulin Aspart 1 vial 11/16/17 22:00 11/17/17 16:29 Novolog Vial Sliding Scale - SQ Not Given ACHS [facility] Protocol Lisinopril 5 mg 11/17/17 10:00 11/17/17 09:43 Prinivil PO 5 mg DAILY ANGELO Administration Sodium Chloride 2 spray 11/17/17 01:39 [place] - NS BID PRN NASAL CONGESTION Spironolactone 25 mg 11/17/17 12:15 11/17/17 12:32 Aldactone - PO 25 mg DAILY ANGELO Administration ASSESSMENT/PLAN: 52 yr old man with CHF, HTN, DM presents with SOB and LE edema admitted to [facility] for CHF exacerbation #CHF -Pt has been off meds and lost to follow up for > 1yr. Saw Duane knight (Dr. Potts, [facility] doctor's [facility], ICD placed by German Guerrero) in the past -Echo: severe LV dilation and EF < 15% -Pt has ICD: Interrogation revealed 8 bouts of unsustained VT -Seen by Cardio -Lasix -ASA -Coreg -Plavix -Lisinopril -Aldactone #Transaminitis -Likely 2/2 hepatic congestion -U/S sig for hepatomegally without steatosis consistent with hepatic congestion #CAD -ASA -Plavix #DM -Novolog #FEN -no fluids -lytes wnl -DM diet #PPx -on Lovenox #Dispo -Admitted for CHF exacerbation -healthcare proxy: [place] Tobias [phone] Visit type - Emergency Visit Emergency Visit: No - New Patient This patient is new to me today: No - Critical Care Critical Care patient: No
[2017-11-17] MEDS: MELATONIN 5 MG TABLETS PO SCH (22:55)
[2017-11-18] MEDS: BENZOCAINE/MENTH/CETYLPYRD CL 1 EACH LOZENGE MM PRN (04:16)
[2017-11-18 06:07] LABS: HBSAG SCREEN Negative (Negative); HEP B CORE AB, TOT Negative (Negative)
[2017-11-18] MEDS: INSULIN SLIDING SCALE (NOVOLOG) 1 VIAL SQ SCH ×4 (06:29→22:21)
[2017-11-18] MEDS: FUROSEMIDE 40 MG/4 ML INJECTABLE VIAL IVPUSH SCH ×2 (06:29→14:01)
[2017-11-18 07:18] LABS: BASO % 0.9 % (0-2.0); EOS % 3.3 % (0-4.5); HEMATOCRIT 39.6 % (35.4-49); HEMOGLOBIN 13.2 GM/dL (11.7-16.9); LYMPH % 20.5 % (8-40); MCH 30.5 pg (25.7-33.7); MCHC 33.5 g/dl (32.0-35.9); MEAN PLT VOLUME 9.5 fl (7.5-11.1); MONO % 6.8 % (3.8-10.2); NEUT % 68.5 % (42.8-82.8); PLATELET COUNT 227 K/MM3 (134-434); RBC 4.35 M/mm3 (4.00-5.60); RDW 15.9 % (11.9-15.9); WHITE BLOOD COUNT 9.2 K/mm3 (4.0-10.0)
[2017-11-18 07:42] LABS: ANION GAP 10 (8-16); BLOOD UREA NITROGEN 30 mg/dL (7-18); CHLORIDE 106 mmol/L (98-107); CO2 26 mmol/L (21-32); CREATININE 1.2 mg/dL (0.7-1.3); GLUCOSE,RANDOM 154 mg/dL (74-106); MAGNESIUM 2.2 mg/dL (1.8-2.4); POTASSIUM 3.9 mmol/L (3.5-5.1); SODIUM 142 mmol/L (136-145)
[2017-11-18 07:46] LABS: ALBUMIN 2.8 g/dl (3.4-5.0)
[2017-11-18 07:53] LABS: BILIRUBIN,DIRECT 0.2 mg/dL (0.0-0.2); BILIRUBIN,TOTAL 0.6 mg/dL (0.2-1.0); TOT PROT 5.5 g/dl (6.4-8.2)
--- NOTE | 2017-11-18 09:01 | PN ---
Physical Exam: SUBJECTIVE: Patient seen and examined at bedside. Pt states foot swelling has improved noticeably. BP dropped to 90/55 overnight. Pt was asymptomatic. OBJECTIVE: Vital Signs Period Temp Pulse Resp BP Sys/Vega Pulse Ox Last 24 Hr 97.3 F-98.6 F 68-80 19-20 90-120/55-79 97-98 GENERAL: The patient is awake, alert, and fully oriented, in no acute distress. HEAD: Normal with no signs of trauma. EYES: sclera anicteric, conjunctiva clear. No ptosis. ENT: oropharynx clear without exudates, moist mucous membranes. NECK: Trachea midline, full range of motion, supple. LUNGS: bibasilar crackles, no accessory muscle use. HEART: Regular rate and rhythm, S1, S2 without murmur, rub or gallop. ABDOMEN: Soft, nontender, nondistended, normoactive bowel sounds, no guarding, no rebound, no hepatosplenomegaly, no masses. EXTREMITIES: 2+ pulses, warm, well-perfused, 2+ edema. Dry skin NEUROLOGICAL: Cranial nerves II through XII grossly intact. Normal speech, gait not observed. PSYCH: Normal mood, normal affect. SKIN: Warm, dry, normal turgor, no rashes or lesions noted Laboratory Results - last 24 hr 11/17/17 11/17/17 11/17/17 06:45 06:45 11:24 WBC RBC Hgb Hct MCV MCH MCHC RDW Plt Count MPV Neutrophils % Lymphocytes % Monocytes % Eosinophils % Basophils % Sodium Potassium Chloride Carbon Dioxide Anion Gap BUN Creatinine POC Glucometer 187 Random Glucose Calcium Magnesium Total Bilirubin Direct Bilirubin AST ALT Alkaline Phosphatase Creatine Kinase 316 H Creatine Kinase Index 1.6 CK-MB (CK-2) 5.204 H Troponin I 0.08 H Total Protein Albumin TSH Hepatitis A Ab Total Negative Hep Bs Antigen Negative Hep Bs Antibody Non reactive Hep B Core Total Ab Negative Hep C Ab Diagnostic <0.1 Liver Fibrosis Interp 11/17/17 11/17/17 11/18/17 16:24 21:40 06:26 WBC RBC Hgb Hct MCV MCH MCHC RDW Plt Count MPV Neutrophils % Lymphocytes % Monocytes % Eosinophils % Basophils % Sodium Potassium Chloride Carbon Dioxide Anion Gap BUN Creatinine POC Glucometer 132 282 193 Random Glucose Calcium Magnesium Total Bilirubin Direct Bilirubin AST ALT Alkaline Phosphatase Creatine Kinase Creatine Kinase Index CK-MB (CK-2) Troponin I Total Protein Albumin TSH Hepatitis A Ab Total Hep Bs Antigen Hep Bs Antibody Hep B Core Total Ab Hep C Ab Diagnostic Liver Fibrosis Interp 11/18/17 11/18/17 11/18/17 06:38 06:38 06:38 WBC 9.2 RBC 4.35 Hgb 13.2 Hct 39.6 MCV 91.0 MCH 30.5 MCHC 33.5 RDW 15.9 Plt Count 227 MPV 9.5 Neutrophils % 68.5 Lymphocytes % 20.5 D Monocytes % 6.8 Eosinophils % 3.3 D Basophils % 0.9 Sodium 142 Potassium 3.9 Chloride 106 Carbon Dioxide 26 Anion Gap 10 BUN 30 H Creatinine 1.2 POC Glucometer Random Glucose 154 H D Calcium 8.0 L Magnesium 2.2 Total Bilirubin 0.6 D Direct Bilirubin 0.2 AST 38 H D ALT 85 H D Alkaline Phosphatase 122 H D Creatine Kinase 191 Creatine Kinase Index CK-MB (CK-2) Troponin I 0.07 H Total Protein 5.5 L Albumin 2.8 L TSH 6.80 H Hepatitis A Ab Total Hep Bs Antigen Hep Bs Antibody Hep B Core Total Ab Hep C Ab Diagnostic Liver Fibrosis Interp Active Medications Generic Name Dose Route Start Last Admin Trade Name Freq PRN Reason Stop Dose Admin Aspirin 81 mg 11/17/17 10:00 11/17/17 09:43 Ecotrin - PO 81 mg DAILY ANGELO Administration Benzocaine/Menthol 1 each 11/17/17 01:39 11/18/17 04:16 Cepacol Lozenge - MM 1 each PRN PRN Administration SORE THROAT Carvedilol 12.5 mg 11/17/17 10:00 11/17/17 21:44 Coreg - PO 12.5 mg BID ANGELO Administration Clopidogrel Bisulfate 75 mg 11/17/17 10:00 11/17/17 09:43 Plavix - PO 75 mg DAILY ANGELO Administration Enoxaparin Sodium 40 mg 11/17/17 10:00 11/17/17 09:42 Lovenox - SQ 40 mg DAILY ANGELO Administration Furosemide 40 mg 11/17/17 06:00 11/18/17 06:29 Lasix Injection - IVPUSH 40 mg BID@0600,1400 ANGELO Administration Insulin Aspart 1 vial 11/16/17 22:00 11/18/17 06:29 Novolog Vial Sliding Scale - SQ 2 unit ACHS ANGELO Administration Protocol Lisinopril 5 mg 11/17/17 10:00 11/17/17 09:43 Prinivil PO 5 mg DAILY ANGELO Administration Melatonin 10 mg 11/17/17 22:45 11/17/17 22:55 Melatonin PO 10 mg HS ANGELO Administration Sodium Chloride 2 spray 11/17/17 01:39 [place] Nasal [place] - NS BID PRN NASAL CONGESTION Spironolactone 25 mg 11/17/17 12:15 11/17/17 12:32 Aldactone - PO 25 mg DAILY ANGELO Administration ASSESSMENT/PLAN: 52 yr old man with CHF, HTN, DM presents with SOB and LE edema admitted to [facility] for CHF exacerbation #CHF -Pt has been off meds and lost to follow up for > 1yr. Saw Duane knight (Dr. Potts, [facility] doctor's group, ICD placed by German Guerrero) in the past -Echo: severe LV dilation and EF < 15% -Pt has ICD: Interrogation revealed 8 bouts of unsustained VT -Seen by Cardio -Lasix -ASA -Coreg -Plavix -Lisinopril -Aldactone #Transaminitis -Likely 2/2 hepatic congestion -U/S sig for hepatomegally without steatosis consistent with hepatic congestion #? Hypothyroidism -TSH 6.8 -no documented history of hypothyroidsim -free T4, total T3 #CAD -ASA -Plavix #DM -Novolog #FEN -no fluids -lytes wnl -DM diet #PPx -on Lovenox #Dispo -Admitted for CHF exacerbation -healthcare proxy: [place] Tobias [phone] Horacio Stanley MD PGY-1 IM Visit type - Emergency Visit Emergency Visit: No - New Patient This patient is new to me today: No - Critical Care Critical Care patient: No - Discharge Referral Referred to [facility] Med P.C.: No
--- NOTE | 2017-11-18 09:24 | PN ---
Teaching Attending Note Name of Resident: Horacio Stanley ATTENDING PHYSICIAN STATEMENT I saw and evaluated the patient. I reviewed the resident's note and discussed the case with the resident. I agree with the resident's findings and plan as documented with exceptions below. SUBJECTIVE: Patient seen and examined. Breathing and swelling continue to improve, no new concerns. OBJECTIVE: Vital Signs Period Temp Pulse Resp BP Sys/Vega Pulse Ox Last 24 Hr 97.3 F-98.0 F 68-78 19-20 90-106/55-75 97-98 Intake & Output 11/15/17 11/16/17 11/17/17 11/18/17 23:59 23:59 23:59 23:59 Intake Total 1439 Output Total 4875 400 Balance -3436 -400 Weight 175 lb 183 lb 2 oz 127 lb General: sitting in bed in no acute distress Chest; Decreased breath sounds at bases, improved air entry Extremities: bilateral pitting edema upto knees with prior surgical scars Abdomen: soft, improved distension, NT Home Medication List Medication Instructions Recorded Confirmed Type Clopidogrel Bisulfate [Plavix -] 75 mg PO DAILY 05/17/17 11/16/17 History Aspirin [Ecotrin] 162 mg PO DAILY 11/16/17 History Carvedilol [Coreg -] 12.5 mg PO BID 11/16/17 History Furosemide [Lasix] 40 mg PO DAILY 11/16/17 History Insulin Lispro [Humalog] 0 unit SQ ASDIR 11/16/17 History Active Medications Generic Name Dose Route Start Last Admin Trade Name Freq PRN Reason Stop Dose Admin Aspirin 81 mg 11/17/17 10:00 11/17/17 09:43 Ecotrin - PO 81 mg DAILY ANGELO Administration Benzocaine/Menthol 1 each 11/17/17 01:39 11/18/17 04:16 Cepacol Lozenge - MM 1 each PRN PRN Administration SORE THROAT Carvedilol 12.5 mg 11/17/17 10:00 11/17/17 21:44 Coreg - PO 12.5 mg BID ANGELO Administration Clopidogrel Bisulfate 75 mg 11/17/17 10:00 11/17/17 09:43 Plavix - PO 75 mg DAILY ANGELO Administration Enoxaparin Sodium 40 mg 11/17/17 10:00 11/17/17 09:42 Lovenox - SQ 40 mg DAILY ANGELO Administration Furosemide 40 mg 11/17/17 06:00 11/18/17 06:29 Lasix Injection - IVPUSH 40 mg BID@0600,1400 ANGELO Administration Insulin Aspart 1 vial 11/16/17 22:00 11/18/17 06:29 Novolog Vial Sliding Scale - SQ 2 unit ACHS ANGELO Administration Protocol Lisinopril 5 mg 11/17/17 10:00 11/17/17 09:43 Prinivil PO 5 mg DAILY ANGELO Administration Melatonin 10 mg 11/17/17 22:45 11/17/17 22:55 Melatonin PO 10 mg HS ANGELO Administration Sodium Chloride 2 spray 11/17/17 01:39 [place] Nasal [place] - NS BID PRN NASAL CONGESTION Spironolactone 25 mg 11/17/17 12:15 11/17/17 12:32 Aldactone - PO 25 mg DAILY ANGELO Administration Laboratory Results - last 24 hr 11/17/17 11/17/17 11/17/17 06:45 11:24 16:24 WBC RBC Hgb Hct MCV MCH MCHC RDW Plt Count MPV Neutrophils % Lymphocytes % Monocytes % Eosinophils % Basophils % Sodium Potassium Chloride Carbon Dioxide Anion Gap BUN Creatinine POC Glucometer 187 132 Random Glucose Calcium Magnesium Total Bilirubin Direct Bilirubin AST ALT Alkaline Phosphatase Creatine Kinase Creatine Kinase Index CK-MB (CK-2) Troponin I Total Protein Albumin TSH Hepatitis A Ab Total Negative Hep Bs Antigen Negative Hep Bs Antibody Non reactive Hep B Core Total Ab Negative Hep C Ab Diagnostic <0.1 Liver Fibrosis Interp 11/17/17 11/18/17 11/18/17 21:40 06:26 06:38 WBC RBC Hgb Hct MCV MCH MCHC RDW Plt Count MPV Neutrophils % Lymphocytes % Monocytes % Eosinophils % Basophils % Sodium 142 Potassium 3.9 Chloride 106 Carbon Dioxide 26 Anion Gap 10 BUN 30 H Creatinine 1.2 POC Glucometer 282 193 Random Glucose 154 H D Calcium 8.0 L Magnesium 2.2 Total Bilirubin Direct Bilirubin AST ALT Alkaline Phosphatase Creatine Kinase Creatine Kinase Index CK-MB (CK-2) Troponin I Total Protein Albumin TSH 6.80 H Hepatitis A Ab Total Hep Bs Antigen Hep Bs Antibody Hep B Core Total Ab Hep C Ab Diagnostic Liver Fibrosis Interp 11/18/17 11/18/17 06:38 06:38 WBC 9.2 RBC 4.35 Hgb 13.2 Hct 39.6 MCV 91.0 MCH 30.5 MCHC 33.5 RDW 15.9 Plt Count 227 MPV 9.5 Neutrophils % 68.5 Lymphocytes % 20.5 D Monocytes % 6.8 Eosinophils % 3.3 D Basophils % 0.9 Sodium Potassium Chloride Carbon Dioxide Anion Gap BUN Creatinine POC Glucometer Random Glucose Calcium Magnesium Total Bilirubin 0.6 D Direct Bilirubin 0.2 AST 38 H D ALT 85 H D Alkaline Phosphatase 122 H D Creatine Kinase 191 Creatine Kinase Index 1.7 CK-MB (CK-2) 3.345 Troponin I 0.07 H Total Protein 5.5 L Albumin 2.8 L TSH Hepatitis A Ab Total Hep Bs Antigen Hep Bs Antibody Hep B Core Total Ab Hep C Ab Diagnostic Liver Fibrosis Interp 2D echo results reviewed ASSESSMENT AND PLAN: 52 yom with PMHx of CAd s/p 2 MIs in s, multiple stents(unknown when), s/p CABG, ICD, CHF, uncontrolled DM(last A1c in 2010 was 14), off meds, lost to follow up for 1.5 years comes with progressive dyspnea, and minimal troponin elevation. -Acute CHF exacerbation, likely Systolic +/- diastolic, from med/dietary non compliance -Severe Cardiomyopathy, ?Ischemic -Abnormal LFTs, likely passive hepatic congestion from above -Elevated Troponin, suspect demand ischemia from above rather than ACS -CAD s/p multiple PCIs and CABG -s/p ICD placement -Uncontrolled DM, non compliance -HLD Plan: 3.5 L neg yesterday. Lasix 40 mg IV BID, strict I/Os, daily weights, 2D echo results noted. Discuss with cardiology, ?Anti-coagulation. Aldactone added. ICD interrogated, NSVT but no other concerning evens. Continue ASA/plavix/Coreg/statin/ACei. LFts improved with diuresis, RUQ US noted. Follow up hep panel. ISS, A1c 8.7, diabetic diet, Add levemir 5 units daily. Insulin teaching. DVTPPX with heparin Dispo pending clinical improvement. Plan discussed with patient in detail, all questions answered.
[2017-11-18] MEDS: ENOXAPARIN NA (PORCINE) 40 MG/0.4 ML DISP.SYRIN SQ SCH (10:16)
[2017-11-18] MEDS: SPIRONOLACTONE 25 MG TABLET (FP) PO SCH (10:16)
[2017-11-18] MEDS: CLOPIDOGREL BISULFATE 75 MG TABLET (FP) PO SCH (10:16)
[2017-11-18] MEDS: ASPIRIN COATED 81 MG TABLET.EC PO SCH (10:16)
[2017-11-18] MEDS: CARVEDILOL 12.5 MG TABLET (FP) PO SCH ×2 (10:17→22:20)
[2017-11-18] MEDS: INSULIN (LEVEMIR) 100 UNITS/ML UNITS SQ SCH (10:17)
[2017-11-18] MEDS: SODIUM CHLORIDE NASAL SPRAY 44 ML BOTTLE NS PRN (11:10)
[2017-11-18] MEDS: LISINOPRIL 5 MG TABLET (FP) PO SCH ×2 (12:05→22:20)
--- NOTE | 2017-11-18 16:07 | PN ---
Progress Note, Physician History of Present Illness: Dyspnea, exercise tolerance and lower extremity swelling improving with diuresis. BP improved. - Current Medication List Current Medications: Active Medications Aspirin (Ecotrin -) 81 mg PO DAILY [facility] Last Admin: 11/18/17 10:16 Dose: 81 mg Benzocaine/Menthol (Cepacol Lozenge -) 1 each MM PRN PRN PRN Reason: SORE THROAT Last Admin: 11/18/17 04:16 Dose: 1 each Carvedilol (Coreg -) 12.5 mg PO BID [facility] Last Admin: 11/18/17 10:17 Dose: 12.5 mg Clopidogrel Bisulfate (Plavix -) 75 mg PO DAILY [facility] Last Admin: 11/18/17 10:16 Dose: 75 mg Enoxaparin Sodium (Lovenox -) 40 mg SQ DAILY [facility] Last Admin: 11/18/17 10:16 Dose: 40 mg Furosemide (Lasix Injection -) 40 mg IVPUSH BID@0600,1400 [facility] Last Admin: 11/18/17 14:01 Dose: 40 mg Insulin Aspart (Novolog Vial Sliding Scale -) 1 vial SQ ACHS [facility] PRN Reason: Protocol Last Admin: 11/18/17 11:16 Dose: 2 unit Insulin Detemir (Levemir Vial) 5 units SQ DAILY [facility] Last Admin: 11/18/17 10:17 Dose: 5 units Lisinopril (Prinivil) 5 mg PO DAILY [facility] Last Admin: 11/18/17 12:05 Dose: 5 mg Melatonin (Melatonin) 10 mg PO HS [facility] Last Admin: 11/17/17 22:55 Dose: 10 mg Sodium Chloride ([place] Nasal [place] -) 2 spray NS BID PRN PRN Reason: NASAL CONGESTION Last Admin: 11/18/17 11:10 Dose: 2 sprays Spironolactone (Aldactone -) 25 mg PO DAILY [facility] Last Admin: 11/18/17 10:16 Dose: 25 mg - Objective Vital Signs: Vital Signs Temperature 97.6 F 11/18/17 14:00 Pulse Rate 88 11/18/17 14:00 Respiratory Rate 20 11/18/17 12:02 Blood Pressure 105/76 11/18/17 14:00 O2 Sat by Pulse Oximetry (%) 97 11/18/17 08:33 Constitutional: Yes: No Distress, Calm, Thin Neck: Yes: Supple Cardiovascular: Yes: Regular Rate and Rhythm Respiratory: Yes: Regular, Diminished, On Nasal O2 Gastrointestinal: Yes: Normal Bowel Sounds, Soft Edema: Yes Edema: LLE: 1+, RLE: 1+ Labs: CBC, BMP 11/18/17 06:38 11/18/17 06:38 - ....Imaging Ultrasound: Report Reviewed (ABd U/S: No stones) EKG: Report Reviewed (Tele: SR, no PAF) Problem List - Problems (1) Acute on chronic systolic (congestive) heart failure Code(s): I50.23 - ACUTE ON CHRONIC SYSTOLIC (CONGESTIVE) HEART FAILURE (2) Coronary artery disease Code(s): I25.10 - ATHSCL HEART DISEASE OF [place] CORONARY ARTERY W/O ANG PCTRS Qualifiers: Coronary Disease-Associated Artery/Lesion type: [place] artery [place] vs. transplanted heart: [place] heart Associated angina: without angina Qualified Code(s): I25.10 - Atherosclerotic heart disease of [place] coronary artery without angina pectoris (3) S/P coronary artery stent placement Code(s): Z95.5 - PRESENCE OF CORONARY ANGIOPLASTY IMPLANT AND GRAFT (4) S/P femoral-femoral bypass surgery Code(s): Z95.828 - PRESENCE OF OTHER VASCULAR IMPLANTS AND GRAFTS (5) Peripheral artery disease Code(s): I73.9 - PERIPHERAL VASCULAR DISEASE, UNSPECIFIED (6) Cardiomyopathy, ischemic Code(s): I25.5 - ISCHEMIC CARDIOMYOPATHY (7) Implantable cardioverter-defibrillator (ICD) in situ Code(s): Z95.810 - PRESENCE OF AUTOMATIC (IMPLANTABLE) CARDIAC DEFIBRILLATOR (8) Diabetes mellitus Code(s): E11.9 - TYPE 2 DIABETES MELLITUS WITHOUT COMPLICATIONS Qualifiers: Diabetes mellitus type: type 2 Diabetes mellitus intermediate school teacher insulin use: with intermediate school teacher use Diabetes mellitus complication status: with circulatory complication Diabetes mellitus complication detail: with peripheral angiopathy without gangrene Qualified Code(s): E11.51 - Type 2 diabetes mellitus with diabetic peripheral angiopathy without gangrene; Z79.4 - MCFP (current) use of insulin; Z79.4 - intermediate school teacher (current) use of insulin; Z79.4 - intermediate school teacher (current) use of insulin; Z79.4 - MCFP (current) use of insulin (9) Hyperlipidemia associated with type 2 diabetes mellitus Code(s): E11.69 - TYPE 2 DIABETES MELLITUS WITH OTHER SPECIFIED COMPLICATION; E78.5 - HYPERLIPIDEMIA, UNSPECIFIED (10) Hypertensive cardiomyopathy Code(s): I11.9 - HYPERTENSIVE HEART DISEASE WITHOUT HEART FAILURE; I43 - CARDIOMYOPATHY IN DISEASES CLASSIFIED ELSEWHERE Qualifiers: Heart failure presence: with heart failure Qualified Code(s): I11.0 - Hypertensive heart disease with heart failure; I43 - Cardiomyopathy in diseases classified elsewhere; I43 - Cardiomyopathy in diseases classified elsewhere; I43 - Cardiomyopathy in diseases classified elsewhere; I43 - Cardiomyopathy in diseases classified elsewhere (11) Noncompliance with medications Code(s): Z91.14 - PATIENT'S OTHER NONCOMPLIANCE WITH MEDICATION REGIMEN (12) Tobacco abuse Code(s): Z72.0 - TOBACCO USE Assessment/Plan 11/17/2017 Severely di;ated with severely decreased LVEF 15%, mod dilated RV with mod-severe decreased RV fxn, mod LAE, mod TR, mild MR, RVSP 40-50 mmHg 1. Acute on chronic systolic failure referable to medication and diet indiscretion improving 2. CAD s/p PCI (stent) with demand ischemia 3. PAD s/p MARINE REPORTER and bypass 4. h/o ICD implantation and generator change 5. Hepatic congestion with abnl LFTs 6. Tobacco abuse 7. Type 2 DM not at goal control Ha1c 8.7% 8. NSVT on ICD interrogation P:1. IV diuresis with monitor diuretic response, renal fxn and electrolytes 2. Check full TFTs, LFTs and trops have peaked 3. Continue ASA 81 qd, Plavix 75 qd, carvedilol 12.5 bid, increase lisinopril 5 bid and aldactone 25 qd as electrolyes and hemodynamics tolerate, start statin once LFTs decline 4. Anticoagulation is not indicated in absence of afib 5. DVT prophylaxis, optimize glycemic control, outpatient records reviewed 6. Tobacco cessation 7. Emphasize importance of compliance with diet, medication and medical f/u 8. F/u with Drs. Potts and Edouard of [facility] upon d/ c.
[2017-11-18] MEDS ORDERED: PT OWN MED DRAWER 7, Y5N ONE (22:03)
[2017-11-18] MEDS: MELATONIN 5 MG TABLETS PO SCH (22:20)
[2017-11-19] MEDS: SODIUM CHLORIDE NASAL SPRAY 44 ML BOTTLE NS PRN ×2 (01:11→17:00)
[2017-11-19] MEDS: BENZOCAINE/MENTH/CETYLPYRD CL 1 EACH LOZENGE MM PRN ×3 (01:11→21:01)
[2017-11-19] MEDS: FUROSEMIDE 40 MG/4 ML INJECTABLE VIAL IVPUSH SCH (05:54)
[2017-11-19] MEDS: INSULIN SLIDING SCALE (NOVOLOG) 1 VIAL SQ SCH ×4 (06:33→21:01)
[2017-11-19 07:39] LABS: BASO % 0.9 % (0-2.0); EOS % 3.1 % (0-4.5); HEMATOCRIT 42.4 % (35.4-49); HEMOGLOBIN 14.1 GM/dL (11.7-16.9); LYMPH % 17.9 % (8-40); MCH 30.6 pg (25.7-33.7); MCHC 33.2 g/dl (32.0-35.9); MEAN CELL VOLUME 92.2 fl (80-96); MEAN PLT VOLUME 9.5 fl (7.5-11.1); MONO % 6.3 % (3.8-10.2); NEUT % 71.8 % (42.8-82.8); PLATELET COUNT 235 K/MM3 (134-434); RBC 4.59 M/mm3 (4.00-5.60); RDW 15.8 % (11.9-15.9); WHITE BLOOD COUNT 7.7 K/mm3 (4.0-10.0)
[2017-11-19 07:44] LABS: ALBUMIN 3.1 g/dl (3.4-5.0); ANION GAP 8 (8-16); BILIRUBIN,TOTAL 0.7 mg/dL (0.2-1.0); BLOOD UREA NITROGEN 31 mg/dL (7-18); CALCIUM 8.4 mg/dL (8.5-10.1); CHLORIDE 104 mmol/L (98-107); CO2 28 mmol/L (21-32); CREATININE 1.4 mg/dL (0.7-1.3); GLUCOSE,RANDOM 271 mg/dL (74-106); POTASSIUM 4.1 mmol/L (3.5-5.1); SGOT/AST 40 U/L (15-37); SGPT/ALT 93 U/L (12-78); SODIUM 140 mmol/L (136-145); TOT PROT 6.3 g/dl (6.4-8.2)
[2017-11-19 07:45] LABS: ALK PHOS 139 U/L (45-117)
[2017-11-19] MEDS: LISINOPRIL 5 MG TABLET (FP) PO SCH ×2 (09:21→21:01)
[2017-11-19] MEDS: ENOXAPARIN NA (PORCINE) 40 MG/0.4 ML DISP.SYRIN SQ SCH (09:21)
[2017-11-19] MEDS: CARVEDILOL 12.5 MG TABLET (FP) PO SCH ×2 (09:21→21:01)
[2017-11-19] MEDS: CLOPIDOGREL BISULFATE 75 MG TABLET (FP) PO SCH (09:21)
[2017-11-19] MEDS: ASPIRIN COATED 81 MG TABLET.EC PO SCH (09:21)
[2017-11-19] MEDS: SPIRONOLACTONE 25 MG TABLET (FP) PO SCH (09:21)
[2017-11-19] MEDS: INSULIN (LEVEMIR) 100 UNITS/ML UNITS SQ SCH (09:22)
--- NOTE | 2017-11-19 12:07 | PN ---
Progress Note, Physician History of Present Illness: Dyspnea, exercise tolerance and lower extremity swelling improving with diuresis. BP improved. - Current Medication List Current Medications: Active Medications Aspirin (Ecotrin -) 81 mg PO DAILY [facility] Last Admin: 11/19/17 09:21 Dose: 81 mg Benzocaine/Menthol (Cepacol Lozenge -) 1 each MM PRN PRN PRN Reason: SORE THROAT Last Admin: 11/19/17 06:33 Dose: 1 each Carvedilol (Coreg -) 12.5 mg PO BID [facility] Last Admin: 11/19/17 09:21 Dose: 12.5 mg Clopidogrel Bisulfate (Plavix -) 75 mg PO DAILY [facility] Last Admin: 11/19/17 09:21 Dose: 75 mg Enoxaparin Sodium (Lovenox -) 40 mg SQ DAILY [facility] Last Admin: 11/19/17 09:21 Dose: 40 mg Furosemide (Lasix Injection -) 40 mg IVPUSH BID@0600,1400 [facility] Last Admin: 11/19/17 05:54 Dose: 40 mg Insulin Aspart (Novolog Vial Sliding Scale -) 1 vial SQ ACHS [facility] PRN Reason: Protocol Last Admin: 11/19/17 11:34 Dose: Not Given Insulin Detemir (Levemir Vial) 5 units SQ DAILY [facility] Last Admin: 11/19/17 09:22 Dose: 5 units Lisinopril (Prinivil) 5 mg PO BID [facility] Last Admin: 11/19/17 09:21 Dose: 5 mg Melatonin (Melatonin) 10 mg PO HS [facility] Last Admin: 11/18/17 22:20 Dose: 10 mg Sodium Chloride ([place] Nasal [place] -) 2 spray NS BID PRN PRN Reason: NASAL CONGESTION Last Admin: 11/19/17 01:11 Dose: 2 sprays Spironolactone (Aldactone -) 25 mg PO DAILY [facility] Last Admin: 11/19/17 09:21 Dose: 25 mg - Objective Vital Signs: Vital Signs Temperature 98.1 F 11/19/17 08:55 Pulse Rate 73 11/19/17 08:55 Respiratory Rate 20 11/19/17 08:55 Blood Pressure 109/56 11/19/17 08:55 O2 Sat by Pulse Oximetry (%) 100 11/19/17 08:52 Constitutional: Yes: No Distress, Calm Neck: Yes: Supple Cardiovascular: Yes: Regular Rate and Rhythm Respiratory: Yes: Regular, Diminished Gastrointestinal: Yes: Normal Bowel Sounds, Soft Edema: Yes Edema: LLE: 1+, RLE: 1+ Labs: CBC, BMP 11/19/17 06:42 11/19/17 06:42 - ....Imaging EKG: Report Reviewed (Tele: SR ml DAVIS) Problem List - Problems (1) Acute on chronic systolic (congestive) heart failure Code(s): I50.23 - ACUTE ON CHRONIC SYSTOLIC (CONGESTIVE) HEART FAILURE (2) Coronary artery disease Code(s): I25.10 - ATHSCL HEART DISEASE OF [place] CORONARY ARTERY W/O ANG PCTRS Qualifiers: Coronary Disease-Associated Artery/Lesion type: [place] artery [place] vs. transplanted heart: [place] heart Associated angina: without angina Qualified Code(s): I25.10 - Atherosclerotic heart disease of [place] coronary artery without angina pectoris (3) S/P coronary artery stent placement Code(s): Z95.5 - PRESENCE OF CORONARY ANGIOPLASTY IMPLANT AND GRAFT (4) S/P femoral-femoral bypass surgery Code(s): Z95.828 - PRESENCE OF OTHER VASCULAR IMPLANTS AND GRAFTS (5) Peripheral artery disease Code(s): I73.9 - PERIPHERAL VASCULAR DISEASE, UNSPECIFIED (6) Cardiomyopathy, ischemic Code(s): I25.5 - ISCHEMIC CARDIOMYOPATHY (7) Implantable cardioverter-defibrillator (ICD) in situ Code(s): Z95.810 - PRESENCE OF AUTOMATIC (IMPLANTABLE) CARDIAC DEFIBRILLATOR (8) Diabetes mellitus Code(s): E11.9 - TYPE 2 DIABETES MELLITUS WITHOUT COMPLICATIONS Qualifiers: Diabetes mellitus type: type 2 Diabetes mellitus terminal operator insulin use: with terminal operator use Diabetes mellitus complication status: with circulatory complication Diabetes mellitus complication detail: with peripheral angiopathy without gangrene Qualified Code(s): E11.51 - Type 2 diabetes mellitus with diabetic peripheral angiopathy without gangrene; Z79.4 - medical terminologist (current) use of insulin; Z79.4 - medical terminologist (current) use of insulin; Z79.4 - medical terminologist (current) use of insulin; Z79.4 - FPC (current) use of insulin (9) Hyperlipidemia associated with type 2 diabetes mellitus Code(s): E11.69 - TYPE 2 DIABETES MELLITUS WITH OTHER SPECIFIED COMPLICATION; E78.5 - HYPERLIPIDEMIA, UNSPECIFIED (10) Hypertensive cardiomyopathy Code(s): I11.9 - HYPERTENSIVE HEART DISEASE WITHOUT HEART FAILURE; I43 - CARDIOMYOPATHY IN DISEASES CLASSIFIED ELSEWHERE Qualifiers: Heart failure presence: with heart failure Qualified Code(s): I11.0 - Hypertensive heart disease with heart failure; I43 - Cardiomyopathy in diseases classified elsewhere; I43 - Cardiomyopathy in diseases classified elsewhere; I43 - Cardiomyopathy in diseases classified elsewhere; I43 - Cardiomyopathy in diseases classified elsewhere (11) Noncompliance with medications Code(s): Z91.14 - PATIENT'S OTHER NONCOMPLIANCE WITH MEDICATION REGIMEN (12) Tobacco abuse Code(s): Z72.0 - TOBACCO USE Assessment/Plan 11/17/2017 Severely di;ated with severely decreased LVEF 15%, mod dilated RV with mod-severe decreased RV fxn, mod LAE, mod TR, mild MR, RVSP 40-50 mmHg 1. Acute on chronic systolic failure referable to medication and diet indiscretion improving 2. CAD s/p PCI (stent) with demand ischemia 3. PAD s/p EXCHANGE CONSULTANT and bypass 4. h/o ICD implantation and generator change 5. Hepatic congestion with abnl LFTs 6. Tobacco abuse 7. Type 2 DM not at goal control Ha1c 8.7% 8. NSVT on ICD interrogation 9. JOE due to diuresis P:1. Decrease diuresis with monitor diuretic response, renal fxn and electrolytes 2. Continue ASA 81 qd, Plavix 75 qd, carvedilol 12.5 bid, lisinopril 5 bid and aldactone 25 qd as electrolyes and hemodynamics tolerate, start statin once LFTs decline 3. Anticoagulation is not indicated in absence of afib 4. DVT prophylaxis, optimize glycemic control, outpatient records reviewed 5. Tobacco cessation 6. Emphasize importance of compliance with diet, medication and medical f/u 7. F/u with Drs. Potts and Edouard of [facility] upon d/ c.
--- NOTE | 2017-11-19 14:00 | PN ---
Teaching Attending Note Name of Resident: Marlon Jc SUBJECTIVE: Patient seen and examined. breathing and swelling continue to improve, no new complaints. OBJECTIVE: Vital Signs Period Temp Pulse Resp BP Sys/Vega Pulse Ox Last 24 Hr 97.4 F-98.1 F 71-88 19-20 96-109/56-76 96-100 Intake & Output 11/16/17 11/17/17 11/18/17 11/19/17 23:59 23:59 23:59 23:59 Intake Total 1439 1034 400 Output Total 4822 1125 2100 Balance -8329 -86 -6434 Weight 175 lb 183 lb 2 oz 179 lb 173 lb General: sitting in bed, mildly dyspneic Chest: bibasilar rales, improved air entry Extremities: bilateral pedal pitting symmetric edema, improved Abdomen:distended, NT, soft Home Medication List Medication Instructions Recorded Confirmed Type Clopidogrel Bisulfate [Plavix -] 75 mg PO DAILY 05/17/17 11/16/17 History Aspirin [Ecotrin] 162 mg PO DAILY 11/16/17 History Carvedilol [Coreg -] 12.5 mg PO BID 11/16/17 History Furosemide [Lasix] 40 mg PO DAILY 11/16/17 History Insulin Lispro [Humalog] 0 unit SQ ASDIR 11/16/17 History Active Medications Generic Name Dose Route Start Last Admin Trade Name Freq PRN Reason Stop Dose Admin Aspirin 81 mg 11/17/17 10:00 11/19/17 09:21 Ecotrin - PO 81 mg DAILY ANGELO Administration Benzocaine/Menthol 1 each 11/17/17 01:39 11/19/17 06:33 Cepacol Lozenge - MM 1 each PRN PRN Administration SORE THROAT Carvedilol 12.5 mg 11/17/17 10:00 11/19/17 09:21 Coreg - PO 12.5 mg BID ANGELO Administration Clopidogrel Bisulfate 75 mg 11/17/17 10:00 11/19/17 09:21 Plavix - PO 75 mg DAILY ANGELO Administration Furosemide 40 mg 11/20/17 10:00 Lasix Injection - IVPUSH DAILY ANGELO Heparin Sodium (Porcine) 5,000 unit 11/20/17 06:00 Heparin - SQ TID ANGELO Insulin Aspart 1 vial 11/16/17 22:00 11/19/17 11:34 Novolog Vial Sliding Scale - SQ Not Given ACHS [facility] Protocol Insulin Detemir 5 units 11/18/17 10:00 11/19/17 09:22 Levemir Vial SQ 5 units DAILY ANGELO Administration Lisinopril 5 mg 11/18/17 22:00 11/19/17 09:21 Prinivil PO 5 mg BID ANGELO Administration Melatonin 10 mg 11/17/17 22:45 11/18/17 22:20 Melatonin PO 10 mg HS ANGELO Administration Sodium Chloride 2 spray 11/17/17 01:39 11/19/17 01:11 [place] Nasal [place] - NS 2 sprays BID PRN Administration NASAL CONGESTION Spironolactone 25 mg 11/17/17 12:15 11/19/17 09:21 Aldactone - PO 25 mg DAILY ANGELO Administration Laboratory Results - last 24 hr 11/18/17 11/18/17 11/19/17 16:33 22:19 06:27 WBC RBC Hgb Hct MCV MCH MCHC RDW Plt Count MPV Neutrophils % Lymphocytes % Monocytes % Eosinophils % Basophils % Sodium Potassium Chloride Carbon Dioxide Anion Gap BUN Creatinine Creat Clearance w eGFR POC Glucometer 273 149 252 Random Glucose Calcium Total Bilirubin AST ALT Alkaline Phosphatase Total Protein Albumin Free T4 11/19/17 11/19/17 11/19/17 06:42 06:42 11:28 WBC 7.7 RBC 4.59 Hgb 14.1 Hct 42.4 MCV 92.2 MCH 30.6 MCHC 33.2 RDW 15.8 Plt Count 235 MPV 9.5 Neutrophils % 71.8 Lymphocytes % 17.9 Monocytes % 6.3 Eosinophils % 3.1 Basophils % 0.9 Sodium 140 Potassium 4.1 Chloride 104 Carbon Dioxide 28 Anion Gap 8 BUN 31 H Creatinine 1.4 H Creat Clearance w eGFR 53.01 POC Glucometer 148 Random Glucose 271 H D Calcium 8.4 L Total Bilirubin 0.7 AST 40 H ALT 93 H Alkaline Phosphatase 139 H Total Protein 6.3 L Albumin 3.1 L Free T4 1.17 H ASSESSMENT AND PLAN: 52 yom with PMHx of CAd s/p 2 MIs in , multiple stents(unknown when), s/p CABG, ICD, CHF, uncontrolled DM(last A1c in 2010 was 14), off meds, lost to follow up for 1.5 years comes with progressive dyspnea, and minimal troponin elevation. -Acute CHF exacerbation, likely Systolic +/- diastolic, from med/dietary non compliance -Severe Cardiomyopathy, ?Ischemic -Abnormal LFTs, likely passive hepatic congestion from above -Elevated Troponin, suspect demand ischemia from above rather than ACS -CAD s/p multiple PCIs and CABG -s/p ICD placement -Uncontrolled DM, non compliance -HLD Plan: volume status continues to improve, Cr rising, decrease lasix to 40 mg IV daily, Strict I/Os, daily weights, 2D echo results noted. Cardiology input noted. Aldactone added. ICD interrogated, NSVT but no other concerning evens. Continue ASA/plavix/Coreg/statin/ACei. LFts improved with diuresis, RUQ US noted. Follow up hep panel. ISS, A1c 8.7, diabetic diet, Continue levemir 5 units daily. Insulin teaching. Thyroid panel noted, repeat in 2-3 weeks once volume status better and further w /u accordingly. DVTPPX change lovenox to heparin given JOE. Dispo pending clinical improvement. Plan discussed with patient in detail, all questions answered.
[2017-11-19] MEDS: MELATONIN 5 MG TABLETS PO SCH (21:01)
[2017-11-20 05:27] VITALS: TEMP 97.6
[2017-11-20] MEDS ORDERED: HEPARIN NA (PORCINE) 5,000 UNITS/ML 1ML VIAL SQ SCH (06:00)
[2017-11-20 06:04] LABS: BASO % 0.7 % (0-2.0); HEMATOCRIT 41.3 % (35.4-49); LYMPH % 18.1 % (8-40); MCHC 33.9 g/dl (32.0-35.9); MEAN CELL VOLUME 91.5 fl (80-96); MEAN PLT VOLUME 9.5 fl (7.5-11.1); MONO % 7.4 % (3.8-10.2); NEUT % 69.8 % (42.8-82.8); PLATELET COUNT 224 K/MM3 (134-434); RBC 4.51 M/mm3 (4.00-5.60); RDW 15.9 % (11.9-15.9); WHITE BLOOD COUNT 8.3 K/mm3 (4.0-10.0)
[2017-11-20] MEDS: INSULIN SLIDING SCALE (NOVOLOG) 1 VIAL SQ SCH ×2 (06:26→11:40)
[2017-11-20 06:39] LABS: ALBUMIN 3.1 g/dl (3.4-5.0); ANION GAP 8 (8-16); BILIRUBIN,DIRECT 0.2 mg/dL (0.0-0.2); BLOOD UREA NITROGEN 30 mg/dL (7-18); CALCIUM 8.1 mg/dL (8.5-10.1); CHLORIDE 106 mmol/L (98-107); CO2 26 mmol/L (21-32); CREATININE 1.3 mg/dL (0.7-1.3); GLUCOSE,RANDOM 267 mg/dL (74-106); MAGNESIUM 2.3 mg/dL (1.8-2.4); PHOSPHOROUS 4.2 mg/dL (2.5-4.9); POTASSIUM 4.2 mmol/L (3.5-5.1); SGOT/AST 37 U/L (15-37); SGPT/ALT 90 U/L (12-78); SODIUM 140 mmol/L (136-145)
[2017-11-20 06:41] LABS: ALK PHOS 130 U/L (45-117); BILIRUBIN,TOTAL 0.6 mg/dL (0.2-1.0); TOT PROT 6.3 g/dl (6.4-8.2)
[2017-11-20] MEDS ORDERED: INSULIN (LEVEMIR) 100 UNITS/ML UNITS SQ SCH (08:31)
--- NOTE | 2017-11-20 08:31 | PN ---
Teaching Attending Note Name of Resident: Horacio Stanley ATTENDING PHYSICIAN STATEMENT I saw and evaluated the patient. I reviewed the resident's note and discussed the case with the resident. I agree with the resident's findings and plan as documented with exceptions below. SUBJECTIVE: Patient seen and examined. breathing improved, leg swelling markedly improved. OBJECTIVE: Vital Signs Period Temp Pulse Resp BP Sys/Vega Pulse Ox Last 24 Hr 97.3 F-98.2 F 70-79 20-20 93-117/56-79 95-100 Intake & Output 11/17/17 11/18/17 11/19/17 11/20/17 23:59 23:59 23:59 23:59 Intake Total 1439 1034 1050 Output Total 4879 1125 2800 300 Balance -3436 -91 -1750 -300 Weight 183 lb 2 oz 179 lb 173 lb 174 lb 12.8 oz General: sitting in bed in no acute distress Chest: markedly improved air entry, no rales appreciated Abdomen: soft, improved distension, NT. Extremities: 2+ pedal pitting edema, improved. Home Medication List Medication Instructions Recorded Confirmed Type Clopidogrel Bisulfate [Plavix -] 75 mg PO DAILY 05/17/17 11/16/17 History Aspirin [Ecotrin] 162 mg PO DAILY 11/16/17 History Carvedilol [Coreg -] 12.5 mg PO BID 11/16/17 History Furosemide [Lasix] 40 mg PO DAILY 11/16/17 History Insulin Lispro [Humalog] 0 unit SQ ASDIR 11/16/17 History Active Medications Generic Name Dose Route Start Last Admin Trade Name Freq PRN Reason Stop Dose Admin Aspirin 81 mg 11/17/17 10:00 11/19/17 09:21 Ecotrin - PO 81 mg DAILY ANGELO Administration Benzocaine/Menthol 1 each 11/17/17 01:39 11/19/17 21:01 Cepacol Lozenge - MM 1 each PRN PRN Administration SORE THROAT Carvedilol 12.5 mg 11/17/17 10:00 11/19/17 21:01 Coreg - PO 12.5 mg BID ANGELO Administration Clopidogrel Bisulfate 75 mg 11/17/17 10:00 11/19/17 09:21 Plavix - PO 75 mg DAILY ANGELO Administration Furosemide 40 mg 11/20/17 10:00 Lasix Injection - IVPUSH DAILY ANGELO Heparin Sodium (Porcine) 5,000 unit 11/20/17 06:00 11/20/17 05:27 Heparin - SQ 5,000 unit TID ANGELO Administration Insulin Aspart 1 vial 11/16/17 22:00 11/20/17 06:26 Novolog Vial Sliding Scale - SQ 4 unit ACHS ANGELO Administration Protocol Insulin Detemir 5 units 11/18/17 10:00 11/19/17 09:22 Levemir Vial SQ 5 units DAILY ANGELO Administration Lisinopril 5 mg 11/18/17 22:00 11/19/17 21:01 Prinivil PO 5 mg BID ANGELO Administration Melatonin 10 mg 11/17/17 22:45 11/19/17 21:01 Melatonin PO 10 mg HS ANGELO Administration Sodium Chloride 2 spray 11/17/17 01:39 11/19/17 17:00 [place] Nasal [place] - NS 2 sprays BID PRN Administration NASAL CONGESTION Spironolactone 25 mg 11/17/17 12:15 11/19/17 09:21 Aldactone - PO 25 mg DAILY ANGELO Administration Laboratory Results - last 24 hr 11/19/17 11/19/17 11/19/17 11:28 16:50 20:54 WBC RBC Hgb Hct MCV MCH MCHC RDW Plt Count MPV Neutrophils % Lymphocytes % Monocytes % Eosinophils % Basophils % Sodium Potassium Chloride Carbon Dioxide Anion Gap BUN Creatinine POC Glucometer 148 179 172 Random Glucose Calcium Phosphorus Magnesium Total Bilirubin Direct Bilirubin AST ALT Alkaline Phosphatase Total Protein Albumin 11/20/17 11/20/17 11/20/17 05:22 05:48 05:48 WBC 8.3 RBC 4.51 Hgb 14.0 Hct 41.3 MCV 91.5 MCH 31.0 MCHC 33.9 RDW 15.9 Plt Count 224 MPV 9.5 Neutrophils % 69.8 Lymphocytes % 18.1 Monocytes % 7.4 Eosinophils % 4.0 Basophils % 0.7 Sodium 140 Potassium 4.2 Chloride 106 Carbon Dioxide 26 Anion Gap 8 BUN 30 H Creatinine 1.3 POC Glucometer 246 Random Glucose 267 H Calcium 8.1 L Phosphorus 4.2 Magnesium 2.3 Total Bilirubin 0.6 Direct Bilirubin 0.2 AST 37 ALT 90 H Alkaline Phosphatase 130 H Total Protein 6.3 L Albumin 3.1 L ASSESSMENT AND PLAN: 52 yom with PMHx of CAd s/p 2 MIs in , multiple stents(unknown when), s/p CABG, ICD, CHF, uncontrolled DM(last A1c in 2010 was 14), off meds, lost to follow up for 1.5 years comes with progressive dyspnea, and minimal troponin elevation. -Acute CHF exacerbation, likely Systolic +/- diastolic, from med/dietary non compliance -Severe Cardiomyopathy, ?Ischemic -Abnormal LFTs, likely passive hepatic congestion from above -Elevated Troponin, suspect demand ischemia from above rather than ACS -CAD s/p multiple PCIs and CABG -s/p ICD placement -Uncontrolled DM, non compliance -HLD Plan: Volume status continues to improve, patient feels well, oxygenating well on room air. Discussed with adi Miranda to transition to lasix 40 mg daily and d.c with close outpatient follow up. Stressed with patient need for home blood glucose monitoring, daily weights checks and close follow up with cardiology. Also need for follow up blood work in 1 week. patient relays understanding and agrees to comply. D/c home today with outpatient follow up. Plan discussed with patient in detail, all questions answered.
[2017-11-20 08:51] VITALS: BP 107/72
--- NOTE | 2017-11-20 09:23 | PN ---
Progress Note, Physician History of Present Illness: Dyspnea, exercise tolerance and lower extremity swelling improving with diuresis. BP improved. - Current Medication List Current Medications: Active Medications Aspirin (Ecotrin -) 81 mg PO DAILY [facility] Last Admin: 11/19/17 09:21 Dose: 81 mg Benzocaine/Menthol (Cepacol Lozenge -) 1 each MM PRN PRN PRN Reason: SORE THROAT Last Admin: 11/19/17 21:01 Dose: 1 each Carvedilol (Coreg -) 12.5 mg PO BID [facility] Last Admin: 11/19/17 21:01 Dose: 12.5 mg Clopidogrel Bisulfate (Plavix -) 75 mg PO DAILY [facility] Last Admin: 11/19/17 09:21 Dose: 75 mg Furosemide (Lasix Injection -) 40 mg IVPUSH DAILY [facility] Heparin Sodium (Porcine) (Heparin -) 5,000 unit SQ TID [facility] Last Admin: 11/20/17 05:27 Dose: 5,000 unit Insulin Aspart (Novolog Vial Sliding Scale -) 1 vial SQ ACHS [facility] PRN Reason: Protocol Last Admin: 11/20/17 06:26 Dose: 4 unit Insulin Detemir (Levemir Vial) 8 units SQ AM [facility] Lisinopril (Prinivil) 5 mg PO BID [facility] Last Admin: 11/19/17 21:01 Dose: 5 mg Melatonin (Melatonin) 10 mg PO HS [facility] Last Admin: 11/19/17 21:01 Dose: 10 mg Sodium Chloride ([place] Nasal [place] -) 2 spray NS BID PRN PRN Reason: NASAL CONGESTION Last Admin: 11/19/17 17:00 Dose: 2 sprays Spironolactone (Aldactone -) 25 mg PO DAILY [facility] Last Admin: 11/19/17 09:21 Dose: 25 mg - Objective Vital Signs: Vital Signs Temperature 97.6 F 11/20/17 08:50 Pulse Rate 72 11/20/17 08:50 Respiratory Rate 22 11/20/17 08:50 Blood Pressure 107/72 11/20/17 08:50 O2 Sat by Pulse Oximetry (%) 100 11/20/17 08:48 Constitutional: Yes: No Distress, Calm, Thin Neck: Yes: Supple Cardiovascular: Yes: Regular Rate and Rhythm Respiratory: Yes: Regular, Diminished Gastrointestinal: Yes: Normal Bowel Sounds, Soft Edema: Yes Edema: LLE: 1+, RLE: 1+ Labs: CBC, BMP 11/20/17 05:48 11/20/17 05:48 Problem List - Problems (1) Acute on chronic systolic (congestive) heart failure Code(s): I50.23 - ACUTE ON CHRONIC SYSTOLIC (CONGESTIVE) HEART FAILURE (2) Coronary artery disease Code(s): I25.10 - ATHSCL HEART DISEASE OF [place] CORONARY ARTERY W/O ANG PCTRS Qualifiers: Coronary Disease-Associated Artery/Lesion type: [place] artery [place] vs. transplanted heart: [place] heart Associated angina: without angina Qualified Code(s): I25.10 - Atherosclerotic heart disease of [place] coronary artery without angina pectoris (3) S/P coronary artery stent placement Code(s): Z95.5 - PRESENCE OF CORONARY ANGIOPLASTY IMPLANT AND GRAFT (4) S/P femoral-femoral bypass surgery Code(s): Z95.828 - PRESENCE OF OTHER VASCULAR IMPLANTS AND GRAFTS (5) Peripheral artery disease Code(s): I73.9 - PERIPHERAL VASCULAR DISEASE, UNSPECIFIED (6) Cardiomyopathy, ischemic Code(s): I25.5 - ISCHEMIC CARDIOMYOPATHY (7) Implantable cardioverter-defibrillator (ICD) in situ Code(s): Z95.810 - PRESENCE OF AUTOMATIC (IMPLANTABLE) CARDIAC DEFIBRILLATOR (8) Diabetes mellitus Code(s): E11.9 - TYPE 2 DIABETES MELLITUS WITHOUT COMPLICATIONS Qualifiers: Diabetes mellitus type: type 2 Diabetes mellitus ferry terminal agent insulin use: with ferry terminal agent use Diabetes mellitus complication status: with circulatory complication Diabetes mellitus complication detail: with peripheral angiopathy without gangrene Qualified Code(s): E11.51 - Type 2 diabetes mellitus with diabetic peripheral angiopathy without gangrene; Z79.4 - MCFP (current) use of insulin; Z79.4 - bed bug exterminator (current) use of insulin; Z79.4 - bed bug exterminator (current) use of insulin; Z79.4 - bed bug exterminator (current) use of insulin (9) Hyperlipidemia associated with type 2 diabetes mellitus Code(s): E11.69 - TYPE 2 DIABETES MELLITUS WITH OTHER SPECIFIED COMPLICATION; E78.5 - HYPERLIPIDEMIA, UNSPECIFIED (10) Hypertensive cardiomyopathy Code(s): I11.9 - HYPERTENSIVE HEART DISEASE WITHOUT HEART FAILURE; I43 - CARDIOMYOPATHY IN DISEASES CLASSIFIED ELSEWHERE Qualifiers: Heart failure presence: with heart failure Qualified Code(s): I11.0 - Hypertensive heart disease with heart failure; I43 - Cardiomyopathy in diseases classified elsewhere; I43 - Cardiomyopathy in diseases classified elsewhere; I43 - Cardiomyopathy in diseases classified elsewhere; I43 - Cardiomyopathy in diseases classified elsewhere (11) Noncompliance with medications Code(s): Z91.14 - PATIENT'S OTHER NONCOMPLIANCE WITH MEDICATION REGIMEN (12) Tobacco abuse Code(s): Z72.0 - TOBACCO USE Assessment/Plan 11/17/2017 Severely di;ated with severely decreased LVEF 15%, mod dilated RV with mod-severe decreased RV fxn, mod LAE, mod TR, mild MR, RVSP 40-50 mmHg 1. Acute on chronic systolic failure referable to medication and diet indiscretion improving 2. CAD s/p PCI (stent) with demand ischemia 3. PAD s/p SCHEDULE CHECKER and bypass 4. h/o ICD implantation and generator change 5. Hepatic congestion with abnl LFTs 6. Tobacco abuse 7. Type 2 DM not at goal control Ha1c 8.7% 8. NSVT on ICD interrogation 9. JOE due to diuresis improved P:1. Oral diuresis with monitor diuretic response, renal fxn and electrolytes, wrap legs 2. Continue ASA 81 qd, Plavix 75 qd, carvedilol 12.5 bid, lisinopril 5 bid and aldactone 25 qd as electrolyes and hemodynamics tolerate, start Crestor 10 qd 3. Anticoagulation is not indicated in absence of afib 4. DVT prophylaxis, optimize glycemic control, outpatient records reviewed 5. Tobacco cessation 6. Emphasize importance of compliance with diet, medication and medical f/u 7. D/c planning with f/u with Drs. Potts and Edouard of [facility] upon d/c.
[2017-11-20] MEDS: CLOPIDOGREL BISULFATE 75 MG TABLET (FP) PO SCH (09:42)
[2017-11-20] MEDS: SPIRONOLACTONE 25 MG TABLET (FP) PO SCH (09:42)
[2017-11-20] MEDS: ASPIRIN COATED 81 MG TABLET.EC PO SCH (09:42)
[2017-11-20] MEDS: LISINOPRIL 5 MG TABLET (FP) PO SCH (09:42)
[2017-11-20] MEDS: CARVEDILOL 12.5 MG TABLET (FP) PO SCH (09:42)
[2017-11-20] MEDS ORDERED: FUROSEMIDE 40 MG/4 ML INJECTABLE VIAL IVPUSH SCH (10:00)
--- NOTE | 2017-11-20 12:16 | DS ---
Physical Exam: SUBJECTIVE: Patient seen and examined at bedside. No acute events overnight. Pt has been walking around the floor. Swelling in legs is markedly decreased. Pt feels well. OBJECTIVE: Vital Signs Period Temp Pulse Resp BP Sys/Vega Pulse Ox Last 24 Hr 97.3 F-98.2 F 70-79 20-22 93-117/67-79 95-100 PHYSICAL EXAM GENERAL: The patient is awake, alert, and fully oriented, in no acute distress. HEAD: Normal with no signs of trauma. EYES: sclera anicteric, conjunctiva clear. No ptosis. ENT: oropharynx clear without exudates, moist mucous membranes. NECK: Trachea midline, full range of motion, supple. LUNGS: bibasilar crackles, no accessory muscle use. HEART: Regular rate and rhythm, S1, S2 without murmur, rub or gallop. ABDOMEN: Soft, nontender, nondistended, normoactive bowel sounds, no guarding, no rebound, no hepatosplenomegaly, no masses. EXTREMITIES: 2+ pulses, warm, well-perfused, 2+ edema decreased. NEUROLOGICAL: Cranial nerves II through XII grossly intact. Normal speech, gait not observed. PSYCH: Normal mood, normal affect. SKIN: Warm, dry, normal turgor, no rashes or lesions noted LABS Laboratory Results - last 24 hr 11/19/17 11/19/17 11/20/17 16:50 20:54 05:22 WBC RBC Hgb Hct MCV MCH MCHC RDW Plt Count MPV Neutrophils % Lymphocytes % Monocytes % Eosinophils % Basophils % Sodium Potassium Chloride Carbon Dioxide Anion Gap BUN Creatinine POC Glucometer 179 172 246 Random Glucose Calcium Phosphorus Magnesium Total Bilirubin Direct Bilirubin AST ALT Alkaline Phosphatase Total Protein Albumin 11/20/17 11/20/17 11/20/17 05:48 05:48 11:09 WBC 8.3 RBC 4.51 Hgb 14.0 Hct 41.3 MCV 91.5 MCH 31.0 MCHC 33.9 RDW 15.9 Plt Count 224 MPV 9.5 Neutrophils % 69.8 Lymphocytes % 18.1 Monocytes % 7.4 Eosinophils % 4.0 Basophils % 0.7 Sodium 140 Potassium 4.2 Chloride 106 Carbon Dioxide 26 Anion Gap 8 BUN 30 H Creatinine 1.3 POC Glucometer 158 Random Glucose 267 H Calcium 8.1 L Phosphorus 4.2 Magnesium 2.3 Total Bilirubin 0.6 Direct Bilirubin 0.2 AST 37 ALT 90 H Alkaline Phosphatase 130 H Total Protein 6.3 L Albumin 3.1 L HOSPITAL COURSE: Date of Admission:11/16/17 Date of Discharge: 11/20/17 52 yr old man with CHF s/p ICD, HTN, DM presents with SOB and LE edema admitted to [facility] for CHF exacerbation. Pt had been lost to follow up for > 1yr. Pt was seen by [facility] and had his device interrogated. Per Cardio: [place] Dual chamber ICD interrogated, no therapy delivered, no atrial events , 4-5 episodes of non sustained VT, 8.5 years left on battery, generator changed 01/22/2014, normal function Pt was given diuresis which improved his symptoms and decreased his pedal edema. His cardiac meds were resumed: ASA, Coreg, Plavix, Lisinopril, Aldactone , Lasix. On admission, the pt was found to have transaminitis, likely secondary to hepatic congestion. Pt is being sent home with instructions to repeat his labs as an outpt. Labwork showed elevated TSH and T4. Pt will need to have this worked up as an outpt. Has instructions to have labwork done and follow up with PCP. The patient's DM was managed with ISS as an inpt. He is being discharged with Levemir, test strips, and lancets. He states he already has a glucometer. Pt designated a healthcare proxy: [place] Tobias [phone]. Horacio Stanley MD PGY-1 IM Minutes to complete discharge: 30 Discharge Summary Reason For Visit: CONGESTIVE HEART FAILURE Current Active Problems Acute on chronic systolic (congestive) heart failure (Acute) CHF (congestive heart failure) (Acute) Cardiomyopathy, ischemic (Acute) Coronary artery disease (Acute) Diabetes mellitus (Acute) Hyperlipidemia associated with type 2 diabetes mellitus (Acute) Hypertensive cardiomyopathy (Acute) Implantable cardioverter-defibrillator (ICD) in situ (Acute) Noncompliance with medications (Acute) Peripheral artery disease (Acute) S/P coronary artery stent placement (Acute) S/P femoral-femoral bypass surgery (Acute) Tobacco abuse (Acute) Condition: Stable - Instructions Diet, Activity, Other Instructions: You are being sent home with the following medications: -Aspirin 81 mg daily -Coreg 12.5 mg twice daily -Plavix 75 mg daily -Lasix 40 mg daily -Lisinopril 5 mg twice daily -Crestor 10 mg in the evening -Aldactone 25 mg daily -Levemir Insulin 8 units daily You are being given an Insulin pen. Make sure to use the device as you were instructed. If you have questions or are unsure of how to use it, call your doctor. Check your blood sugars before meals and at bedtime. Notify your doctor if < 75 or persistently > 200 or any reading > 400 noted. Take levemir 8 units in the morning for now. Your dose will need to be adjusted according to your blood sugars by your doctor. Make a log of your blood sugar and present it to your primary care doctor. Please take these medications as directed. Make sure you weigh yourself daily, and report any weight more than 3 lbs in 2 days to your lock and dam operator. Make sure you follow up with your primary care doctor within 1 week, and get your routine blood work done. Follow UP blood test: BMP (Basic metabolic Panel) to check your potassium and kidneys with your doctor in 1 week. Make sure you follow up with your primary care doctor within 1 week. Make sure you follow up with your lock and dam operator at [facility] (Dr. Potts, Dr. Nunn, Dr. Duenas) within 1 week. Disposition: HOME - Home Medications Comprehensive Discharge Medication List: Ambulatory Orders Aspirin [Ecotrin] 81 mg PO DAILY #30 tablet. 11/20/17 Carvedilol [Coreg -] 12.5 mg PO BID #30 tablet 11/20/17 Clopidogrel Bisulfate [Plavix -] 75 mg PO DAILY #30 tablet 11/20/17 Furosemide [Lasix -] 40 mg PO DAILY #30 tablet 11/20/17 Insulin (Levemir) [Levemir Vial] 8 units SQ AM #1 bottle 11/20/17 Lisinopril [Prinivil] 5 mg PO BID #60 tablet 11/20/17 Melatonin 10 mg PO HS #30 tab 11/20/17 Rosuvastatin [Crestor -] 10 mg PO HS #30 tablet 11/20/17 Sodium Chloride Nasal [place] [[place] Nasal [place] -] 2 spray NS BID PRN #1 spray 11/20/17 Spironolactone [Aldactone -] 25 mg PO DAILY #30 tablet 11/20/17 This patient is new to me today: No Emergency Visit: No Critical Care patient: No - Discharge Referral Referred to [facility] No
[2017-11-20 12:30] VITALS: PULSE 71
[2017-11-20] MEDS ORDERED: ROSUVASTATIN CA 10 MG TABLET (FP) PO SCH (22:00)
[2017-11-21] MEDS ORDERED: FUROSEMIDE 40 MG TABLET (FP) PO SCH (10:00)
== END 2017-11-20 14:10 | disposition home or self-care (01) | DRG 292 ==
LOC: JER 15:55 → JERBED 18:53 → J4W 11-17 01:18
PROVIDERS: ADMIT Hospitalist; ATTEND Hospitalist
DX: I11.0 Hypertensive heart disease with heart failure (principal); I47.2 Ventricular tachycardia; I50.23 Acute on chronic systolic (congestive) heart failure; F17.210 Nicotine dependence, cigarettes, uncomplicated; Z95.810 Presence of automatic (implantable) cardiac defibrillator; F41.9 Anxiety disorder, unspecified; R74.0 Nonspecific elevation of levels of transaminase and lactic acid dehydrogenase [LDH]; E11.65 Type 2 diabetes mellitus with hyperglycemia; E11.51 Type 2 diabetes mellitus with diabetic peripheral angiopathy without gangrene; Z91.14 Patient's other noncompliance with medication regimen; Z95.1 Presence of aortocoronary bypass graft; E78.5 Hyperlipidemia, unspecified; I25.5 Ischemic cardiomyopathy; R16.0 Hepatomegaly, not elsewhere classified; Z79.4 Long term (current) use of insulin
CPT/HCPCS: 36415; 71046-TC-FY; 76705-TC; 80048; 80053; 80061; 80076; 82550; 82553; 82962; 83036; 83721; 83735; 83880; 84100; 84439; 84443; 84480; 84484; 85025; 86704; 86706; 86708; 87340; 93005; 93010; 93306-TC; 94761; 99283-25; J1644